=== PATIENT | male | born 1950 | race Caucasian/White ===

== ENCOUNTER 2016-07-08 10:44 | Outpatient (CLI) | payer MEDICARE, BC ==
[~2016-07-08] VITALS: Ht 172.7 cm; Wt 113.6 kg
--- NOTE | ~2016-07-08 | HEMODYNAMI ---
PATIENT:CHAD DU MEDICAL RECORD: [id number] : 46 LOCATION:[facility] D.[id number] ADMISSION DATE: 07/08/16 Generatedon:07/08/201615:29 Patient name: CHAD DU Patient #: [id number] SSN: DO B: 1950 Date of study: 07/08/2016 Page: Of Hemodynamic Procedure Report Patient Data Patient Demographics Procedure consent was obtained First Name: CHAD Gender: Male Last Name: FLORIAN : 1950 [facility] Initial: SELENA Age: 66 year(s) Patient #: [id number] Race: Additional ID: [id number] Contact details Address: [address] [place] [address] State: [place] City: [place] Zip code: [address] Past Medical History Allergies Allergen Reaction Date Comments Reported Other allergy 07/08/2016 N Admission Admission Data Admission Date: 07/08/2016 Admission Time: 10:44 Admit Source: Other Insurance Payor: Private Room #: D.2121 health insurance, Medicare Height (in.): 68 BSA: 2.25 (m2) Height (cm.): 172.72 BMI: 38.09 (kg/m2) Weight (lbs.): 250.51 Weight (kg.): 113.63 Lab Results Lab Result Date: 07/08/2016 Lab Result Time: 10:50 Biochemistry Name Units Result Min Max BUN mg/dl 13 --(--*-)-- 7 18 Creatinine mg/dl 1 --(--*-)-- 0.6 1.3 CBC Name Units Result Min Max Hematocrit % 42.5 --(*---)-- 42 54 Hemoglobin g/dl 14 --(*---)-- 13.5 17.5 Procedure Procedure Types Cath Procedure Diagnostic Procedure LHC LH w/Coronaries PCI Procedure Coronary Stent Initial PTCA Initial Procedure Description Procedure Date Procedure Date: 07/08/2016 Procedure Start Time: 13:21 Procedure End Time: 14:25 Procedure Staff Name Function Kenisha Rangel RT Monitor Husam Randee RT Scrub Irma Tejeda RN Nurse Kane Ricks MD Performing Physician Berhane Coyle RT Monitor Licha Gan RT Monitor Procedure Data Cath Procedure Fluoroscopy Diagnostic fluoroscopy Total fluoroscopy Time: time: 35.2 min 35.2 min Diagnostic fluoroscopy Total fluoroscopy dose: dose: 7033 mGy 7033 mGy Contrast Material Contrast Material Type Amount (ml) Isovue 370 418 Entry Location Entry Primary Successful Side Size Upsize Upsize Entry Closure Hernandez ccessful Closure Location (Fr) 1 (Fr) 2 (Fr) Remarks Device Remarks Radial Right 6 Fr Mechanical artery Short Compression Femoral Right 6 Fr Exoseal artery Short Femoral Right 6 Fr Exoseal artery Short Estimated blood loss: 5 ml Diagnostic catheters Device Type Used For End Catheter Placement Terumo 5Fr David 110cm Procedure catheter Cordis Infinity 5Fr JL Left Coronary 4.0 catheter Angiography Procedure Complications No complications Procedure Medications Medication Administration Route Dosage Oxygen NC 2 l/min Lidocaine 2% added to field 20 Heparin Flush Bag added to field 2 bags (1000units/500ml NS) 0.9% NaCl I.V. 100 ml/hr Versed I.V. 2 mg Fentanyl I.V. 100 mcg Radial Cocktail I.A. 1 syringe (Verapomil 2mg/Nitro 400mcg/Heparin 1500units) Versed I.V. 1 mg Fentanyl I.V. 50 mcg Versed I.V. 1 mg Fentanyl I.V. 50 mcg Versed I.V. 1 mg Fentanyl I.V. 50 mcg Heparin Bolus I.V. 4000 units Integrilin (Bolus I.V. 10.2 ml 2mg/ml) Versed I.V. 1 mg Fentanyl I.V. 50 mcg Heparin Bolus I.V. 3000 units Plavix P.O. 600 mg Zofran I.V. 4 mg Atropine 1 mg Heparin Bolus I.V. 2000 units Fentanyl I.V. 50 mcg Fentanyl I.V. 50 mcg Amiodarone Loading I.V. drip 150 mg Dose (150mg/100ml D5W) Hemodynamics Rest BSA: 2.25 (m2) HGB: 14 (g/dl) O2 Consumption: Estimated: 247.7 (ml/min) O2 Consu mption indexed: Estimated:110.09 (ml/min/m) Heart Rate: 54 (bpm) Pressure Samples Time Site Value (mmHg) Purpose Heart Use Rate(bpm) 13:27 LV 136/-5,16 Snapshot 85 13:28 LV 112/10,11 Pullback 90 13:28 AO 118/74(93) Pullback 90 Gradients Valve Time Site 1 Site 2 Mean SEP/DFP Peak To Heart Use (mmHg) (sec/min) Peak Rate (mmHg) (bpm) Aortic 13:28 LV AO 0 90 112/10,11 118/74(93) Calculations Valve P-P Mean Valve Index Valve Source Name Gradient Area Flow (cm2) Aortic 0 0 Snapshots Pre Cath Intra NCS Post Cath Vital Signs Time Heart Resp SPO2 etCO2 [id number] NIBP (mmHg) Rhythm Pain Status Sed ation Rate (ipm) (%) (mmHg) (mmHg) Level (bpm) 13:02:59 57 21 99 0 0 135/76(110) NSR 0 (11) , No 10( A) pain 13:07:09 56 17 100 0 0 133/71(104) NSR 0 (11) , No 10( A) pain 13:11:25 63 16 98 0 0 125/75(107) NSR 0 (11) , No 10( A) pain 13:15:35 64 18 99 0 0 127/83(98) NSR 0 (11) , No 10( A) pain 13:19:45 64 19 97 0 0 136/85(120) NSR 0 (11) , No 10( A) pain 13:23:57 73 16 97 0 0 113/88(108) NSR 0 (11) , No 9(A ) pain 13:28:05 86 13 96 0 0 128/75(93) NSR 0 (11) , No 9(A ) pain 13:32:19 87 18 98 0 0 125/76(91) NSR 0 (11) , No 9(A ) pain 13:36:28 81 16 98 0 0 126/77(100) NSR 0 (11) , No 9(A ) pain 13:40:36 83 15 98 0 0 122/81(105) NSR 0 (11) , No 9(A ) pain 13:44:48 77 16 98 0 0 135/76(100) NSR 0 (11) , No 9(A ) pain 13:49:04 81 16 98 0 0 120/78(99) NSR 0 (11) , No 9(A ) pain 13:53:12 78 17 99 0 0 120/85(99) NSR 0 (11) , No 9(A ) pain 13:57:18 79 17 100 0 0 128/85(103) NSR 0 (11) , No 9(A ) pain 14:01:30 77 17 100 0 0 130/81(97) NSR 0 (11) , No 9(A ) pain 14:05:44 73 16 100 0 0 127/78(105) NSR 0 (11) , No 9(A ) pain 14:09:58 69 16 100 0 0 122/75(98) NSR 0 (11) , No 9(A ) pain 14:14:12 71 17 99 0 0 125/70(101) NSR 0 (11) , No 9(A ) pain 14:18:21 69 17 99 0 0 117/75(97) NSR 0 (11) , No 10( A) pain 14:22:29 69 15 99 0 0 104/76(87) NSR 10 (11) , 10( A) Unimaginable unspeakable 14:36:27 112 12 100 0 0 108/74(91) NSR 10 (11) , 10( A) Unimaginable unspeakable 14:40:29 107 20 100 0 0 120/88(106) NSR 10 (11) , 10( A) Unimaginable unspeakable 14:44:32 104 17 100 0 0 119/95(102) NSR 8 (11) , 10( A) Utterly horrible 14:48:38 109 16 95 0 0 121/90(100) NSR 8 (11) , 10( A) Utterly horrible 14:52:44 116 20 95 0 0 127/93(108) NSR 8 (11) , 10( A) Utterly horrible 14:56:50 108 16 96 0 0 124/89(100) NSR 3 (11) , 10( A) Tolerable 15:00:58 92 16 97 0 0 139/85(117) NSR 3 (11) , 10( A) Tolerable 15:04:53 98 17 96 0 0 118/92(109) NSR 3 (11) , 10( A) Tolerable 15:08:57 89 17 95 0 0 131/90(107) NSR 3 (11) , 10( A) Tolerable Medications Time Medication Route Dose Verified Delivered Reason Note s Effectiveness by by 13:01:35 Oxygen NC 2 l/min Kane Buffie used for [facility] Tejeda RN procedure 13:01:53 Lidocaine 2% added 20ml Kane Kane for local to vial [facility] anesthetic field MD OVIEDO 13:02:04 Heparin Flush added 2 bags Kane Middleton used for Bag to [facility] procedure (1000units/500ml field MD OVIEDO NS) 13:02:15 0.9% NaCl I.V. 100 Kane Buffie Per physician ml/hr [facility] Tejeda RN, MD 13:18:11 Versed I.V. 2 mg Kane Buffie for sedation [facility] Tejeda RN, MD 13:18:21 Fentanyl I.V. 100 mcg Kane Seamusie for sedation [facility] Tejeda RN, MD 13:24:52 Radial Cocktail I.A. 1 Kane Kane for (Verapomil syringe [facility] vasodilation 2mg/Nitro MD OVIEDO 400mcg/Hepari 13:24:57 Versed I.V. 1 mg Kane Buffie for sedation [facility] Tejeda RN, MD 13:25:01 Fentanyl I.V. 50 mcg Kane Buffie for sedation [facility] Tejeda RN, MD 13:31:12 Versed I.V. 1 mg Kane Buffie for sedation [facility] Tejeda RN, MD 13:31:16 Fentanyl I.V. 50 mcg Kane Buffie for sedation [facility] Tejeda RN, MD 13:35:52 Versed I.V. 1 mg Kane Buffie for sedation [facility] Tejeda RN, MD 13:35:55 Fentanyl I.V. 50 mcg Kane Buffie for sedation [facility] Tejeda RN, MD 13:38:35 Heparin Bolus I.V. 4000 Kane Buffie for VERI FIED units [facility] John Tejeda RN anticoagulation WITH DR MD PETERSEN 13:44:07 Integrilin I.V. 10.2 ml Kane Wayie for (Bolus 2mg/ml) [facility] Tejeda RN antiplatelet MD therapy 14:00:53 Versed I.V. 1 mg Kane Buffie for sedation [facility] Tejeda RN, MD 14:00:57 Fentanyl I.V. 50 mcg Kane Buffie for sedation [facility] Tejeda RN, MD 14:03:04 Heparin Bolus I.V. 3,000 Kane Buffie for VERI FIED units [facility] John Tejeda RN anticoagulation WITH DR MD PETERSEN 14:27:47 Plavix P.O. 600 mg Kane Buffie for [facility] Tejeda RN antiplatelet MD therapy 14:29:20 Zofran I.V. [address] John Tejeda RN, MD 14:32:48 Atropine 1 mg Kane Bufflaura Westbrook RN, MD 14:41:13 Heparin Bolus I.V. 2,000 Kane Buffie for VERI FIED units [facility] John Tejeda RN anticoagulation WITH DR MD PETERSEN 14:43:09 Fentanyl I.V. 50 mcg Kane Buffie for sedation [facility] Tejeda RN, MD 14:46:46 Fentanyl I.V. 50 mcg Kane Buffie for sedation [facility] Tejeda RN, MD 14:52:22 Amiodarone I.V. 150 mg Kane Solis Per physician Loading Dose drip [facility] Tejeda RN (150mg/100ml D5W) Procedure Log Time Note 12:32:26 Husam Jeff RT(R) sent for patient. Start room use. 12:32:27 Time tracking: Regular hours 12:32:32 Plan of Care:Hemodynamics will remain stable., Cardiac rhythm will remain stable., Comfort level will be maintained., Respiratory function will remain adequate., Patient/ family verbilizes understanding of procedure., Procedure tolerated without complication., Recovers from procedure without complications.. 12:40:50 Lab Result : Hemoglobin 14 g/dl 12:40:50 Lab Result : Hematocrit 42.5 % 12:40:50 Lab Result : BUN 13 mg/dl 12:40:50 Lab Result : Creatinine 1 mg/dl 12:40:55 Diagnostic Cath Status : Elective 12:41:04 Patient Weight : 250.51 lbs 12:41:18 Patient Height : 68 inches 12:41:27 Insurance Payor : Private health insurance, Medicare 12:41:31 Admit Source: Other 12:43:03 Patient allergic to Other allergyPCN 12:43:26 ACC Patient presents with Stable Angina CCS Anginal Class 2--Slight limitation of ordinary activity. 12:43:41 H&P Date Dictated: 07/03/2016 Within 30 days and on chart., H&P Addendum completed by physician on day of procedure. (MUST COMPLETE FOR ALL OUTPATIENTS). 12:54:46 Patient received from Outpatients to CCL 2 Alert and oriented. Tansferred to table in Supine position. 12:54:48 Correct patient and procedure confirmed by team. 12:54:48 Warm blankets applied, and kyle hugger turned on for patient comfort. 12:54:50 Signed procedure consent form obtained from patient. 12:54:51 ECG and BP/O2 sat monitors applied to patient. 12:54:53 Pre-procedure instructions explained to patient. 12:54:54 Pre-op teaching completed and patient verbalized understanding. 12:54:56 Family in waiting room. 12:54:58 Patient NPO since Midnight. 13:01:35 Oxygen 2 l/min NC was given by Irma Tejeda RN; used for procedure; 13:01:53 Vital chart was started 13:01:53 Lidocaine 2% 20ml vial added to field was given by Kane Ricks MD; for local anesthetic; 13:01:57 Rhythm: sinus bradycardia 13:02:04 Heparin Flush Bag (1000units/500ml NS) 2 bags added to field was given by Kane Ricks MD; used for procedure; 13:02:07 Full Disclosure recording started 13:02:13 Is the patient allergic to Iodine/contrast media? No. 13:02:15 0.9% NaCl 100 ml/hr I.V. was given by Irma Tejeda RN; Per physician; 13:03:08 Is patient on blood thinner?No 13:03:11 ACC The patient was administered the following blood thiners within the last 24 hours: ACCAspirin 13:03:18 Patient diabetic? No. 13:03:26 ACCPatient has been prescribed/administered the following anti-anginal medication within the last 2 weeks: Long-Acting Nitrates 13:03:33 Previous problem with sedation/anesthesia? No ? 13:05:24 Snore? Yes 13:05:26 Sleep apnea? Yes 13:05:27 Deviated septum? No 13:05:39 Opens mouth fully? Yes 13:05:40 Sticks out tongue? Yes 13:05:42 Airway obstruction? No ? 13:05:44 Dentures? No ? 13:05:47 Pre procedure: right dorsailis pedis pulse 2+ Normal; easily identifiable; not easily obliterated 13:05:49 Modified Brad's test Ulnar < 7 seconds 13:05:51 Patient pain scale 0/10 ?. 13:05:56 IV patent on arrival in left forearm with 0.9% NaCl at [facility]. 13:05:59 Lab results completed and on chart. 13:06:02 Right groin area was prepped with chlora-prep and draped in sterile fashion 13:06:03 Sharps counted by scrub and verified by R.N. 13:06:03 Alarms reviewed by R. N. 13:06:11 Use device set Radial Dx 13:06:12 Acist Syringe opened to sterile field. 13:06:13 Terumo 6Fr Slender Glidesheath opened to sterile field. 13:06:13 Bag Decanter opened to sterile field. 13:06:13 Cardinal Cath Pack opened to sterile field. 13:06:14 Acist Hand Control opened to sterile field. 13:06:14 St Johnnie 260cm J .035 wire opened to sterile field. 13:06:15 Acist Manifold opened to sterile field. 13:06:16 Tegaderm 4 x 4 opened to sterile field. 13:06:55 Baseline sample Acquired. 13:09:21 Physician paged 13:09:24 Zero performed for pressure channel P1 13:09:28 Zero performed for pressure channel P1 13:09:32 Zero performed for pressure channel P1 13:17:28 Final Timeout: patient, procedure, and site verified with staff and physician. All members of the team are in agreement. 13:17:31 Right groin site verified by team. 13:17:36 Physical assessment completed. ASA score P 2 - A patient with mild systemic disease as per Kane Ricks MD. 13:17:44 Sedation plan: IV Moderate Sedation Versed, Fentanyl 13:18:11 Versed 2 mg I.V. was given by Irma Tejeda RN; for sedation; 13:18:21 Fentanyl 100 mcg I.V. was given by Irma Tejeda RN; for sedation; 13:20:46 Procedure started. 13:21:20 Local anesthetic to right femoral artery with Lidocaine 2% by Kane Ricks MD.INITIAL ACCESS ONLY 13:23:51 A 6 Fr Short sheath was inserted into the Right Radial artery 13:24:52 Radial Cocktail (Verapomil 2mg/Nitro 400mcg/Heparin 1500units) 1 syringe I.A. was given by Kane Ricks MD; for vasodilation; 13:24:57 Versed 1 mg I.V. was given by Irma Tejeda RN; for sedation; 13:25:01 Fentanyl 50 mcg I.V. was given by Irma Tejeda RN; for sedation; 13:25:07 Kenisha Claire RT(R) was relieved by Berhane Coyle RT(R) as monitoring person 13:25:11 A Hemp 4 [place] 5Fr David 110cm catheter was advanced over the wire and used for Procedure. 13:27:28 LV gram done using BUI 13:27:29 LV hemodynamics recorded. 13:27:31 Injector settings: Ml/sec: 5, Volume: 15, 13:28:01 EF : 55 % 13:28:51 RCA angiography performed. 13:29:40 LCA angiography performed. 13:31:12 Versed 1 mg I.V. was given by Irma Tejeda RN; for sedation; 13:31:16 Fentanyl 50 mcg I.V. was given by Irma Tejeda RN; for sedation; 13:34:35 Catheter removed. 13:34:37 Proceeding to intervention. 13:35:17 [employer] BasixCompak Inflation Kit opened to sterile field. 13:35:17 Cordis 6FR XBLAD 4.0 guide catheter opened to sterile field. 13:35:26 Saldana [place] 300cm 0.014 guide wire opened to sterile field. 13:35:52 Versed 1 mg I.V. was given by Irma Tejeda RN; for sedation; 13:35:55 Fentanyl 50 mcg I.V. was given by Irma Tejeda RN; for sedation; 13:37:53 6 Fr xblad 4 guide catheter was inserted over the wire 13:38:26 Guide Catheter removed. unable to cannulate vessel. 13:38:35 Heparin Bolus 4000 units I.V. was given by Irma Tejeda RN; for anticoagulation; VERIFIED WITH DR PETERSEN 13:38:45 unable to get back up support. Moving to femoral approach. 13:39:07 Local anesthetic to right femoral artery with Lidocaine 2% by Kane Ricks MD.ADDITIONAL ACCESS 13:39:17 A 6 Fr Short sheath was inserted into the Right Femoral artery 13:42:11 Medtronic Launcher 6Fr JL 4.0 SH guide catheter opened to sterile field. 13:42:18 6 Fr JL 4 SH guide catheter was inserted over the wire 13:44:07 Integrilin (Bolus 2mg/ml) 10.2 ml I.V. was given by Irma Tejeda RN; for antiplatelet therapy; 13:45:29 cougar wire advanced. 13:46:32 Wire advanced across lesion. 13:46:33 The [place] Sci Lincoln 3.0 X 15 balloon was advanced and then removed because of failure to cross lesion 13:51:34 Wire removed. 13:51:38 Guide Catheter removed. unable to cannulate vessel. 13:52:18 Medtronic Launcher 6Fr EBU 3.75 SH guide catheter opened to sterile field. 13:52:34 6 Fr ebu 3.75sh guide catheter was inserted over the wire 13:57:30 Saldana Whisper J 300cm 0.014 guide wire opened to sterile field. 13:57:37 whisper wire advanced. 13:58:17 Wire advanced across lesion. 14:00:43 Inflation number: 1 A Euphora 1.5 x 10 Balloon was prepped and advanced across the Ramus, then inflated to 12 JOHN for 0:30 (min:sec). 14:00:53 Versed 1 mg I.V. was given by Irma Tejeda RN; for sedation; 14:00:57 Fentanyl 50 mcg I.V. was given by Irma Tejeda RN; for sedation; 14:01:06 Balloon removed over the wire. 14:03:04 Heparin Bolus 3,000 units I.V. was given by Irma Tejeda RN; for anticoagulation; VERIFIED WITH DR PETERSEN 14:04:29 Inflation number: 2 A [place] Sci Lincoln 3.0 X 15 balloon was prepped and advanced across the Ramus, then inflated to 10 JOHN for 0:30 (min:sec). 14:05:34 Balloon removed over the wire. 14:08:56 The Medtronic Integrity 3.0 X 18 stent was advanced then removed because of failure to cross lesion 14:11:00 Wire removed. 14:11:09 [place] Sci Choice PT Extra Support J 300cm .014 gu opened to sterile field. 14:11:16 choice pt wire advanced. 14:12:46 Inflation number: 3 A [place] [employer] [place] 3.0 X 15 balloon was prepped and advanced across the Ramus, then inflated to 10 JOHN for 0:30 (min:sec). 14:13:17 Balloon removed over the wire. 14:16:24 The Medtronic Integrity 3.0 X 18 stent was advanced then removed because of failure to cross lesion 14:20:44 The Medtronic Integrity 3.0 X 12 stent was advanced then removed because of failure to cross lesion 14:20:51 Wire removed. 14:20:52 Guide catheter removed. 14:21:06 Cordis 6Fr Exoseal opened to sterile field. 14:21:48 Sheath removed intact; hemostasis achieved with Exoseal to the Right Femoral artery. 14:22:17 Terumo TR Band Large opened to sterile field. 14:22:30 Sheath removed intact; hemostasis achieved with Mechanical Compression to the Right Radial artery. 14:23:10 Sharps counted by scrub and verified by R.N. 14:23:14 TR band inflated with 10cc of air. 14:23:20 Post-op/insertion site Right Femoral artery dressed using a 4 x 4 and Tegaderm. 14:23:24 Post right femoral artery:stable 14:23:35 Patient needs reinforcement of post procedure teaching. 14:24:05 Procedure type changed to Cath procedure, Diagnostic procedure, LHC, LHC w/Coronaries, PCI procedure, Coronary Stent Initial, PTCA Initial 14:27:47 Plavix 600 mg P.O. was given by Irma Tejeda RN; for antiplatelet therapy; 14:28:27 Before removing patient from table, ST changes and chest pain were noted; Patient redraped for continuation of procedure 14:29:20 Zofran 4 mg I.V. was given by Irma Tejeda RN; ; 14:32:27 Right groin site verified by team. 14:32:48 Atropine 1 mg was given by Irma Tejead RN; ; 14:34:11 local anesthetic to left femoral artery with 2% lidocaine by Dr. Singh 14:34:46 Vital chart was started 14:35:20 A 6 Fr Short sheath was inserted into the Right Femoral artery 14:36:28 Zero performed for pressure channel P1 14:37:49 St Johnnie 260cm J .035 wire opened to sterile field. 14:38:00 A Cordis Infinity 5Fr JL 4.0 catheter was advanced over the wire and used for Left Coronary Angiography. 14:40:55 Saldana Whisper J 300cm 0.014 guide wire opened to sterile field. 14:41:13 Heparin Bolus 2,000 units I.V. was given by Irma Tejeda RN; for anticoagulation; VERIFIED WITH DR PETERSEN 14:41:30 Medtronic Launcher 6Fr JL 4.0 guide catheter opened to sterile field. 14:41:54 6 Fr jl 4 guide catheter was inserted over the wire 14:42:00 whisper wire advanced. 14:43:06 whisper wire removed 14:43:09 Fentanyl 50 mcg I.V. was given by Irma Tejeda RN; for sedation; 14:46:21 Saldana [place] 300cm 0.014 guide wire opened to sterile field. 14:46:31 cougar wire advanced. 14:46:46 Fentanyl 50 mcg I.V. was given by Irma Tejeda RN; for sedation; 14:52:22 Amiodarone Loading Dose (150mg/100ml D5W) 150 mg I.V. drip was given by Irma Tejeda RN; Per physician; 14:53:18 Inflation number: 1 A [place] Sci [place] 2.5 X 15 balloon was prepped and advanced across the Prox LAD, then inflated to 10 JOHN for 0:30 (min:sec). 14:53:52 Inflation number: 2 The [place] Sci [place] 2.5 X 15 balloon was reinflated across the Prox LAD, to 12 JOHN for 0:30 (min:sec). 14:54:34 Quick Combo opened to sterile field. 14:54:46 Quick combo pads placed on patients chest and back. 14:54:49 Defibrillator synced and charged to 360 Joules. 14:54:50 Shock delivered. 14:54:59 Patient cardioverted to sinus rhythm . 14:55:39 Balloon removed over the wire. 14:58:45 Inflation Number: 3 A Medtronic Integrity 3.5 X 15 stent was prepped and advanced across the Prox LAD. The stent was deployed at 12 JOHN for 0:30 (min:sec). 15:02:35 Inflation Number: 4 A Medtronic Integrity 3.5 X 9 stent was prepped and advanced across the Prox LAD. The stent was deployed at 11 JOHN for 0:30 (min:sec). 15:03:42 Inflation number: 5 The stent balloon was then re-inflated across the Prox LAD to 10 JOHN for 0:30 (min:sec). 15:04:57 Wire removed. 15:04:57 Stent catheter was removed intact over wire. 15:04:58 Guide catheter removed. 15:05:49 Cordis 6Fr Exoseal opened to sterile field. 15:06:14 Sheath removed intact; hemostasis achieved with Exoseal to the Right Femoral artery. 15:06:17 Procedure ended.(Physican Out) 15:10:02 Fluoroscopy time 35.20 minutes. 15:10:16 Fluoroscopy dose: 7033 mGy 15:10:16 Flurop Dose total: 7033 15:10:59 Contrast amount:Isovue 370 418ml. 15:11:03 Sharps counted by scrub and verified by R.N. 15:11:06 Insertion/operative site no bleeding no hematoma. 15:11:11 Post-op/insertion site Right Femoral artery dressed using a 4 x 4 and Tegaderm. 15:11:13 Post Procedure Pulses reassessed and unchanged 15:11:17 Post procedure rhythm: sinus rhythm 15:11:20 Estimated blood loss: 5 ml 15:11:22 Post procedure instruction explained to patient.Patient verbalizes understanding. 15:12:04 Procedure and supply charges have been captured, reviewed, submitted and are correct. 15:12:06 Procedure Complication : No complications 15:12:10 See physician's report for complete and final results. 15:12:10 Vital chart was stopped 15:12:25 Report given to [facility]. 15:12:27 Patient transfered to [facility] with Stretcher. 15:12:38 ACC-PCI Only Patient was given prescriptions, or instructed by Kane Ricks MD to start/continue the following medications upon discharge: Aspirin 15:12:39 End room use (Document Last) Intervention Summary Intervention Notes Time ActionType Lesion and Equipment Action# Pressure Duration Attributes Used 13:46:33 Discard [place] Balloon Sci [place] 3.0 X 15 balloon 14:00:43 Inflate Ramus Euphora 1 12 00:30 balloon 1.5 x 10 Balloon 14:04:29 Inflate Ramus [place] 2 10 00:30 balloon Sci [place] 3.0 X 15 balloon 14:08:56 Discard Medtronic Stent Integrity 3.0 X 18 stent 14:12:46 Inflate Ramus [place] 3 10 00:30 balloon Sci [place] 3.0 X 15 balloon 14:16:24 Discard Medtronic Stent Integrity 3.0 X 18 stent 14:20:44 Discard Medtronic Stent Integrity 3.0 X 12 stent 14:53:18 Inflate Prox LAD [place] 1 10 00:30 balloon Sci [place] 2.5 X 15 balloon 14:53:52 Reinflate Prox LAD [place] 2 12 00:30 balloon Sci [place] 2.5 X 15 balloon 14:58:45 Place stent Prox LAD Medtronic 3 12 00:30 Integrity 3.5 X 15 stent 15:02:35 Place stent Prox LAD Medtronic 4 11 00:30 Integrity 3.5 X 9 stent 15:03:42 Reinflate Prox LAD Medtronic 5 10 00:30 stent Integrity balloon 3.5 X 9 stent Device Usage Item Name Manufacture Quantity Catalog Number Hospital Part Current Mini mal Lot# / Charge Number Stock Stock Serial# Code Acist Acist 1 [id number] 199209 214023 [id number] 20 Syringe [employer] Cardinal Cardinal 1 [id number] 592304 16591 519007 5 Cath Pack Health Bag Microtek 1 [id number] [id number] 40272 183119 5 Mobule [employer]. Terumo 6Fr Terumo 1 [id number] 007330 400478 820868 [address] [facility] Johnnie 2 419041 743101 009572 927996 30 260cm J .035 wire Acist Hand Acist 1 08093 611556 030147 149421 5 Control [employer] Inc Acist Acist 1 52205 427128 386510 458703 5 Manifold [employer] Inc Tegaderm 4 3M 1 [id number] 716303 128401 967768 5 x 4 Terumo 5Fr Terumo 1 40-8860 417457 742154 096911 5 David 110cm catheter Cordis 6FR Cardinal 1 [id number] 449266 046653 010859 3 XBLAD 4.0 Health guide catheter Merit Merit 1 [id number] 019768 501265 208674 15 [employer] Inflation Kit Saldana Saldana 2 [id number] 292267 356064 685432 1 [place] [employer] 300cm 0.014 guide wire Medtronic Medtronic 1 [id number] 424949 09710 0708439 1 Launcher 6Fr JL 4.0 SH guide catheter [place] Sci [place] 2 [id number] 193418 137318 442165 1 [id number] [place] [employer] [id number] 3.0 X 15 balloon Medtronic Medtronic 1 [id number] 531577 70644 2751450 1 Launcher 6Fr EBU 3.75 SH guide catheter Lever 2 [id number] 698277 235543 225089 5 Whisper J Vascular 300cm 0.014 guide wire Euphora 1.5 Medtronic 1 [id number] 878421 889104 269829 5 [id number] x 10 Balloon Medtronic Medtronic 1 [id number] 504982 745840 166081 5 [id number] Integrity 3.0 X 18 stent [place] Sci [place] 1 [id number] 247817 [id number] 662943 5 Choice Scientific Extra Support J 300cm .014 gu Medtronic Medtronic 1 [id number] 078786 160394 685096 5 [id number] Integrity 3.0 X 12 stent Cordis 6Fr Cardinal 2 EX600 180676 067851 943143 10 Exoseal Health Terumo TR Terumo 1 [id number] 360639 316253 40 Band Large Cordis Cardinal 1 [id number] 660437 056988 018071 10 Sundia MediTechity Health 5Fr JL 4.0 catheter Medtronic Medtronic 1 [id number] 135307 23162 507413 1 Launcher 6Fr JL 4.0 guide catheter [place] Sci [place] 1 [id number] 316907 935955 787254 1 [id number] [place] [employer] 2.5 X 15 balloon Quick Combo Edge Systems 1 [id number] 433769 495771 055895 5 Medtronic Medtronic 1 [id number] 767731 794597 224268 5 [id number] Integrity 3.5 X 15 stent Medtronic Medtronic 1 [id number] 491012 783661 836400 8 [id number] Integrity 3.5 X 9 stent Signature Audit [place] Stage Time Signature Unsigned Intra-Procedure 07/08/2016 Licha Gan RT(R) 3:29:08 PM Signatures Monitor : Kenisha Claire RT Signature : Date : Time : Monitor : Berhane Coyle RT Signature : Date : Time : Monitor : Licha Gan RT Signature : Date : Time : [address] [place] [address]
[~2016-07-08 10:44] MED LIST: BAYER ASPIRIN325 MG PO; BENADRYL25 M1 PO; CYMBALTA20 MG PO; DICLOFENAC SODI50 MG PO; DILAUDID2 MG PO; FLAXSEED OIL1000 MG PO; HYDROCHLOROTHIA25 MG PO; LIVALO2 MG PO; PROVENTIL HFA6.7 GM INH; ROBAXIN-750750 MG PO; XANAX1 MG PO
[2016-07-08 11:18] LABS: BASOPHILS 0.4 % (0.0-2.0); EOSINOPHILS 4.2 % (0-7); HEMATOCRIT 42.5 % (42.0-54.0); IMMATURE GRANULOCYTES 0.1 % (0-5); LYMPHOCYTES 33.1 % (15-50); MCHC 32.9 g/dL (31.0-37.0); MEAN PLATELET VOLUME 10.3 fL (7.4-10.4); MONOCYTES 10.4 % (2-11); NEUTROPHILS 51.8 % (40-80); PLATELET COUNT 288 10x3/uL (130-400); RBC 4.38 10x6/uL (4.20-6.10); RDW 13.2 % (11.5-14.5); WBC 7.1 10x3/uL (4.8-10.8)
[2016-07-08 11:31] LABS: CALC OSMOLALITY 277 mosm/kg (275-300); CALCIUM 9.2 mg/dL (8.5-10.1); CHLORIDE - SERUM 103 mmol/L (98-107); GLUCOSE 88 mg/dL (74-106); POTASSIUM - SERUM 3.8 mmol/L (3.5-5.1); SODIUM 140 mmol/L (136-145); UREA NITROGEN 13 mg/dL (7-18); eGFR NON AFRICAN AMERICAN 79 mL/min (90-120)
[2016-07-08] MEDS ORDERED: PROVENTIL HFA6.7 GM INH (11:39)
[2016-07-08] MEDS ORDERED: ISOSORBIDE MONO30 M1 PO (11:41)
[2016-07-08 11:45] VITALS: BP 138/72; Ht 172.7 cm; Wt 113.6 kg
--- NOTE | 2016-07-08 15:50 | NUR ---
PT ARRIVED TO ROOM FROM [employer]. PT IS ALERT AND ORIENTED RESTING QUIETLY IN BED. RR NONLABORED WITH NC @2L IN PLACE. VSS. PT HAS TR BAND TO R.WRIST INFLATED AND NO S/S OF BLEEDING NOTED. R.GROIN HAS DRSG CDI NO S/S OF BLEEDING OR HEMATOMA NOTED. PERIPHERAL PULSES INTACT. PT AWARE TO LAY FLAT FOR 4 HOURS AND DENIES ANY FURTHER PAIN OR NEEDS. WILL CPOC.
[2016-07-08 16:00] VITALS: BP 118/74
--- NOTE | 2016-07-08 17:30 | NUR ---
REMOVED HALF AIR FROM TR BAND TO R.WRIST AND NOT BLEEDING WAS NOTED, REMOVED SECOND HALF 30 MINS LATER AND SITE STILL CDI NO S/S OF BLEEDING NOTED. DRSG TO R.GROIN DRSG CDI, NO S/S OF BLEEDING OR HEMATOMA NOTED. PERIPHERAL PULSE INTACT. VSS. WILL CTM.
--- NOTE | 2016-07-08 19:00 | NUR ---
RECEIVED REPORT AND ASSUMED PT CARE FROM DAY SHIFT NURSE @ THIS TIME.
[2016-07-08 20:00] VITALS: BP 132/70
[2016-07-09] VITALS: BP 131/73
--- NOTE | 2016-07-09 06:52 | NUR ---
AAO X4 RESP UNLABORED DENIES ANY NEEDS OR DISCOMFORT NAD NOTED
[2016-07-09 07:41] VITALS: BP 127/75
[2016-07-09] MEDS ORDERED: PLAVIX75 MG PO (08:56)
--- NOTE | 2016-07-09 11:15 | NUR ---
REVIEWED DISCHARGE INSTRUCTIONS PT STATES UNDERSTANDING COPY GIVEN SALINE LOCK DCD TO LFA WITH 22 GA IV CATH INTACT NO REDNESS OR EDEMA NOTED AT SITE PT DISCHARGED HOME LEFT UNIT VIA W/C IN STABLE CONDITION WITH ALL PERSONAL BELONGINGS
--- NOTE | 2016-07-10 13:36 | OP ---
PATIENT NAME: CHAD DU MEDICAL RECORD: [id number] :48 LOCATION:D.CAT ADMISSION DATE: SURGEON: JAMIE FELIX MD DATE OF OPERATION: 07/08/2016 PROCEDURES: Left heart catheterization, selective coronary angiography, right femoral artery approach. CATHETERS: A 5-[place] sheath, 5/4 left and right Nelly, no pigtail. The procedure was well tolerated. We proceeded immediately to PTCA stenting of the ramus. FINDINGS: Left ventriculography in 30-degree BUI view shows inferior basilar hypokinesis. Overall, LV function; however, preserved. CORONARY ANATOMY: Left main: Left main is free of disease. LAD: Has a hazy 50% stenosis in its proximal one third. There was high diagonal ____. Ramus intermedius branch is basically subtotal. RIGHT CORONARY ARTERY: Totally occluded and fills via left to right collaterals. IMPRESSION AND PLAN: Intervention of the ramus intermediate branch. DESCRIPTION OF THE PROCEDURE: After a 5-[place] Island[place] sheath was changed for a 6-[place] sheath. EBU 3.75 guiding catheter provided fairly good catheter support. We will pass a Whisper wire across the tightly occluded ramus down this portion of this vessel, followed by 15 x 3.0 Cocke balloon was inflated up to ____ atmospheres. We are unable to deploy a stent to the ramus intermediate branch, despite using a 15 and 12 mm. At this point, after successful PTCA of the ramus branch, the procedure was stopped and the patient was closed with ExoSeal device in stable condition. Will transfer now onto the bed. The patient was developing severe chest pain with bradyarrhythmias including junctional escape rhythm. The right groin reprepped in a rapid fashion. Commercial Litigation Attorney film showed a probable dissection at the origin of the LAD after the takeoff of the high diagonal ramus branch. This may have been traumatic from the stent itself. A 300 cm Horton XT wires was placed across this area rapidly, followed by a 3.0 x 15 Cocke balloon was inflated in the area to ensure adequate predeployment for stent placement. During this time, the patient was cardioverted due to rapid VT. This required one synchronized shock. Next, stent deployed in the following fashion, a 3.5 x 15 mm Integrity nondrug-eluting stent in the mid portion and a 3.5 x 8 mm Integrity nondrug-eluting stent in the proximal portion, both at 14 atmospheres for 45 seconds. Final injection shows excellent tacking. ____ secondary to stent trauma. Integrilin was rebolused. The patient was loaded with Plavix. Sheath was closed with a second ExoSeal device. TRANSINT:[id number] Voice Confirmation ID: [id number] DOCUMENT ID: [id number] OPERATIVE REPORT [id number] CHAD DU,JAMIE Strong MD at 1336 CC: [id number] DICTATION DATE: 07/08/16 1515 OB GYN PHYSICIAN ASSISTANT: 07/08/16 1904 DEP CLI 07/09/16 [facility] [address] [place] [address]
== END 2016-07-09 11:15 | disposition home or self-care (01) ==
LOC: D.CATH 10:44 → D.M2 15:28 → D.CATH 07-09 11:15
PROVIDERS: Internal Medicine Interventional Cardiology
DX: I25.10 Atherosclerotic heart disease of native coronary artery without angina pectoris (principal)

== ENCOUNTER 2016-09-26 22:56 | Inpatient (IN) | payer MEDICARE, BC ==
[~2016-09-26] VITALS: Ht 172.7 cm; Wt 116.7 kg
--- NOTE | ~2016-09-26 | HEMODYNAMI ---
PATIENT:CHAD DU MEDICAL RECORD: [id number] : 46 LOCATION:[address] ADMISSION DATE: 09/27/16 Generatedon:09/28/20169:05 Patient name: CHAD DU Patient #: [id number] SSN: DO B: 1950 Date of study: 09/28/2016 Page: Of Hemodynamic Procedure Report Patient Data Patient Demographics Procedure consent was obtained First Name: CHAD Gender: Male Last Name: FLORIAN : 1950 [facility] Initial: SELENA Age: 66 year(s) Patient #: [id number] Race: Additional ID: [id number] Contact details Address: [address] [place] [address] State: [place] City: [place] Zip code: [address] Past Medical History Allergies Allergen Reaction Date Comments Reported Other allergy 07/08/2016 PCN Admission Admission Data Admission Date: 09/27/2016 Admission Time: 1:18 Room #: 2110 Procedure Procedure Types Cath Procedure Diagnostic Procedure C [facility] w/Coronaries Miscellaneous Procedures Moderate Sedation up to 15 minutes Procedure Description Procedure Date Procedure Date: 09/28/2016 Procedure Start Time: 8:48 Procedure End Time: 9:04 Procedure Staff Name Function Yovany Graham MD Performing Physician Glenis Joshi RN Nurse Wan Chapa RT Scrub Brijesh Galvin RT Monitor Procedure Data Cath Procedure Fluoroscopy Diagnostic fluoroscopy Total fluoroscopy Time: 1 time: 1 min min Diagnostic fluoroscopy Total fluoroscopy dose: dose: 386.77 mGy 386.77 mGy Contrast Material Contrast Material Type Amount (ml) Isovue 300 70 Entry Location Entry Primary Successful Side Size Upsize Upsize Entry Closure Succes sful Closure Location (Fr) 1 (Fr) 2 (Fr) Remarks Device Remarks Femoral Right 7 Fr Exoseal artery Short Estimated blood loss: 10 ml Diagnostic catheters Device Type Used For End Catheter Placement Cordis 5Fr Pigtail Procedure Catheter (MP) Cordis 5Fr JL 4.0 Procedure Catheter (MP) Cordis 5Fr 3DRC Catheter Procedure (MP) Procedure Complications No complications Procedure Medications Medication Administration Route Dosage Oxygen NC 2 l/min Heparin Flush Bag added to field 2 bags (1000units/500ml NS) Lidocaine 2% added to field 20 Versed I.V. 1 mg Fentanyl I.V. 50 mcg Versed I.V. 1 mg Fentanyl I.V. 50 mcg Versed I.V. 1 mg Fentanyl I.V. 50 mcg Hemodynamics Rest Heart Rate: 72 (bpm) Pressure Samples Time Site Value (mmHg) Purpose Heart Use Rate(bpm) 8:51 AO 163/109(132) Snapshot 79 Snapshots Pre Cath Intra NCS Post Cath Vital Signs Time Heart Resp SPO2 NIBP (mmHg) Rhythm Pain Sedation Rate (ipm) (%) Status Level (bpm) 8:31:47 71 18 99 136/85(108) NSR 0 (11) 10(A) , No pain 8:36:08 72 16 100 128/80(104) NSR 0 (11) 10(A) , No pain 8:40:24 77 16 98 141/84(108) NSR 0 (11) 10(A) , No pain 8:44:44 77 15 98 120/85(112) NSR 0 (11) 10(A) , No pain 8:49:43 81 16 97 147/97(104) NSR 0 (11) 10(A) , No pain 8:54:42 90 16 95 Measuring NSR 0 (11) 9(A) , No pain 8:59:23 89 16 97 129/84(104) NSR 0 (11) 9(A) , No pain 9:03:36 87 13 96 144/94(110) NSR 0 (11) 9(A) , No pain Medications Time Medication Route Dose Verified Delivered Reason Notes Effect iveness by by 8:31:32 Oxygen NC 2 Yovany Glenis Per l/min Santos Joshi RN physician 8:31:44 Heparin Flush added 2 Yovany Xiongrey used for Bag to bags Santos Graham MD procedure (1000units/500ml field NS) 8:31:55 Lidocaine 2% added 20ml Yovanyarun Xiongrey used for to vial Santos Graham MD procedure field 8:45:32 Versed I.V. 1 mg Yovany Glenis for Santos Joshi RN sedation 8:45:49 Fentanyl I.V. 50 Yovany Torrezecca for mcg Santos Joshi RN sedation 8:47:29 Versed I.V. 1 mg Yovany Torrezecca for Santos Joshi RN sedation 8:47:49 Fentanyl I.V. 50 Yovany Glenis for mcg Santos Joshi RN sedation 8:50:04 Versed I.V. 1 mg Yovany Torrezecca for Santos Joshi RN sedation 8:50:09 Fentanyl I.V. 50 Yovany Glenis for bal Joshi RN sedation Procedure Log Time Note 7:58:28 Time tracking: Regular hours 7:58:32 Plan of Care:Hemodynamics will remain stable., Cardiac rhythm will remain stable., Comfort level will be maintained., Respiratory function will remain adequate., Patient/ family verbilizes understanding of procedure., Procedure tolerated without complication., Recovers from procedure without complications.. 8:00:51 Brijesh GOETZ(R) sent for patient. Start room use. 8:20:08 Patient received from PCU to [facility] 3 Alert and oriented. Tansferred to table in Supine position. 8:30:17 Correct patient and procedure confirmed by team. 8:30:17 Warm blankets applied, and kyle hugger turned on for patient comfort. 8:30:20 Signed procedure consent form obtained from patient. 8:30:22 ECG and BP/O2 sat monitors applied to patient. 8:30:22 Vital chart was started 8:31:32 Oxygen 2 l/min NC was administered by Glenis Joshi RN; Per physician; 8:31:44 Heparin Flush Bag (1000units/500ml NS) 2 bags added to field was administered by Yovany Graham MD; used for procedure; 8:31:55 Lidocaine 2% 20ml vial added to field was administered by Yovany Graham MD; used for procedure; 8:34:42 Baseline sample Acquired. 8:34:46 Rhythm: sinus rhythm 8:34:47 Full Disclosure recording started 8:34:54 H&P Date Dictated: 09/27/2016 Within 30 days and on chart.. 8:34:55 Pre-procedure instructions explained to patient. 8:34:55 Pre-op teaching completed and patient verbalized understanding. 8:34:56 Family in waiting room. 8:34:58 Patient NPO since Midnight. 8:35:06 Is the patient allergic to Iodine/contrast media? No. 8:35:09 Is patient on blood thinner?Yes 8:35:12 ACC The patient was administered the following blood thiners within the last 24 hours: ACCPlavix 8:35:14 Patient diabetic? No. 8:35:22 Previous problem with sedation/anesthesia? No ? 8:39:54 Snore? Yes 8:39:55 Sleep apnea? Yes 8:39:56 Deviated septum? No 8:39:57 Opens mouth fully? Yes 8:39:58 Sticks out tongue? Yes 8:40:00 Airway obstruction? No ? 8:40:04 Dentures? No ? 8:40:14 Pre procedure: right dorsailis pedis pulse 1+ Palpable, but thready & weak; easily obliterated 8:40:16 Patient pain scale 0/10 ?. 8:40:33 IV patent on arrival in left forearm with 0.9% NaCl at [facility]. 8:40:36 Lab results completed and on chart. 8:40:46 Right groin area was prepped with chlora-prep and draped in sterile fashion 8:40:48 Alarms reviewed by R. N. 8:40:48 Sharps counted by scrub and verified by R.N. 8:41:12 Use device set Femoral Dx 8:41:14 Tegaderm 4 x 4 opened to sterile field. 8:41:15 Acist Hand Control opened to sterile field. 8:41:15 Acist Manifold opened to sterile field. 8:41:17 Acist Syringe opened to sterile field. 8:41:17 Bag Decanter opened to sterile field. 8:41:18 Medline Cath Pack opened to sterile field. 8:41:19 [place] 260cm J .035 wire opened to sterile field. 8:41:20 Diagnostic Infinity 5Fr Multipack catheter opened to sterile field. 8:41:51 Terumo 7Fr [place] Sheath opened to sterile field. 8:44:33 Zero performed for pressure channel P1 8:45:24 --------ALL STOP TIME OUT------ 8:45:24 Final Timeout: patient, procedure, and site verified with staff and physician. All members of the team are in agreement. 8:45:26 Right groin site verified by team. 8:45:29 Physical assessment completed. ASA score P 2 - A patient with mild systemic disease as per Yovany Graham MD. 8:45:32 Versed 1 mg I.V. was administered by Glenis Joshi RN; for sedation; 8:45:32 Sedation plan: IV Moderate Sedation Versed, Fentanyl 8:45:49 Fentanyl 50 mcg I.V. was administered by Glenis Joshi RN; for sedation; 8:47:29 Versed 1 mg I.V. was administered by Glenis Joshi RN; for sedation; 8:47:49 Fentanyl 50 mcg I.V. was administered by Glenis Joshi RN; for sedation; 8:48:03 Procedure started. 8:48:08 Local anesthetic to right femoral artery with Lidocaine 2% by Yovany Graham MD.INITIAL ACCESS ONLY 8:49:10 A 7 Fr Short sheath was inserted into the Right Femoral artery 8:49:21 A Cordis 5Fr Pigtail Catheter (MP) was advanced over the wire and used for Procedure. 8:50:04 Versed 1 mg I.V. was administered by Glenis Joshi RN; for sedation; 8:50:09 Fentanyl 50 mcg I.V. was administered by Glenis Joshi RN; for sedation; 8:50:23 LV angiography performed. 8:50:24 LV gram done using BUI 8:50:30 EF : 50 % 8:51:18 Injector settings: Ml/sec: 10, Volume: 20, 8:51:20 Catheter removed. 8:51:24 A Cordis 5Fr JL 4.0 Catheter (MP) was advanced over the wire and used for Procedure. 8:52:49 LCA angiography performed. 8:52:50 Catheter removed. 8:52:55 A Cordis 5Fr 3DRC Catheter (MP) was advanced over the wire and used for Procedure. 8:53:47 RCA angiography performed. 8:54:20 Catheter removed. 8:54:30 Cordis 7Fr Exoseal opened to sterile field. 8:55:19 Sheath removed intact; hemostasis achieved with Exoseal to the Right Femoral artery. 8:55:21 Procedure ended.(Physican Out) 8:55:44 Fluoroscopy time 01.00 minutes. 8:55:50 Fluoroscopy dose: 386.77 mGy 8:55:50 Flurop Dose total: 386.77 8:55:53 Contrast amount:Isovue 300 70ml. 8:55:55 Sharps counted by scrub and verified by R.N. 8:56:30 Insertion/operative site no bleeding no hematoma. 8:56:46 Post-op/insertion site Right Femoral artery dressed using a 4 x 4 and Tegaderm. 8:56:48 Post Procedure Pulses reassessed and unchanged 8:56:50 Post-procedure physical assessment completed. ASA score P 2 - A patient with mild systemic disease as per Yovany Graham MD. 8:56:52 Post procedure rhythm: unchanged. 8:57:23 Estimated blood loss: 10 ml 8:59:34 Post procedure instruction explained to patient.Patient verbalizes understanding. 8:59:34 Patient needs reinforcement of post procedure teaching. 8:59:49 Procedure Complication : No complications 9:00:22 Procedure and supply charges have been captured, reviewed, submitted and are correct. 9:04:09 Vital chart was stopped 9:04:09 See physician's report for complete and final results. 9:04:13 Report given to PCU. 9:04:16 Patient transfered to PCU with Bed. 9:04:18 Procedure ended. 9:04:18 Full Disclosure recording stopped 9:04:31 End room use (Document Last) 9:04:47 Pt sent for CABG Consult. Device Usage Item Name Manufacture Quantity Catalog Hospital Part Current Minimal Lo t# / Number Charge Number Stock Stock Serial# Code Tegaderm 4 3M 1 [id number] 937617 944703 5 x 4 Acist Hand Acist 1 35769 585579 391591 788947 5 Control Medical Systems Inc Acist Acist 1 36542 837563 397994 752211 5 Manifold Medical Systems Inc Acist Acist 1 12009 960438 506597 701546 20 Syringe Medical Systems Inc Bag Microtek 1 2001S 347213 42981 708374 5 Decanter Medical Inc. Medline Cardinal 1 [id number] 730338 33913 460[address] [facility] 1 112660 180696 111109 787135 30 260cm J .035 wire Diagnostic Cardinal 1 [id number] 879156 10595 247122 30 Infinity Health 5Fr Multipack catheter Terumo 7Fr Terumo 1 [id number] 017159 839687 365918 5 [place] Sheath Cordis 5Fr Cardinal 1 787091 5 Pigtail Health Catheter (MP) Cordis 5Fr Cardinal 1 196313 5 JL 4.0 Health Catheter (MP) Cordis 5Fr Cardinal 1 895009 5 3DRC Health Catheter (MP) Cordis 7Fr Cardinal 1 EX700 349524 238630 361843 5 [facility] Health Signature Audit [place] Stage Time Signature Unsigned Intra-Procedure 09/28/2016 Brijesh Galvin 9:05:02 AM RT(R) Signatures Monitor : Brijesh Galvin RT Signature : Date : Time : [address] [place] [address]
[~2016-09-26 22:56] MED LIST changes: +ISOSORBIDE MONO30 M1 PO; +PLAVIX75 MG PO
[2016-09-26 23:44] LABS: BASOPHILS 0.3 % (0-2); EOSINOPHILS 5.5 % (0-7); HEMATOCRIT 41.6 % (42.0-54.0); HEMOGLOBIN 13.7 g/dL (13.5-17.5); LYMPHOCYTES 48.1 % (15-50); MCH 31.7 pg (26.0-34.0); MCHC 32.9 g/dL (31.0-37.0); MCV 96.3 fL (80.0-100.0); MEAN PLATELET VOLUME 10.8 fL (7.4-10.4); MONOCYTES 10.3 % (2-11); NEUTROPHILS 35.8 % (40-80); PLATELET COUNT 254 10x3/uL (130-400); RBC 4.32 10x6/uL (4.20-6.10); RDW 13.1 % (11.5-14.5); WBC 5.8 10x3/uL (4.8-10.8)
[2016-09-27 00:05] LABS: ALBUMIN 3.4 g/dL (3.4-5.0); ALKALINE PHOSPHATASE 66 U/L (46-116); ALT (SGPT) 44 U/L (10-68); BILIRUBIN - TOTAL 0.25 mg/dL (0.2-1.3); CALC OSMOLALITY 283 mosm/kg (275-300); CALCIUM 8.7 mg/dL (8.5-10.1); CARBON DIOXIDE 28.7 mmol/L (21.0-32.0); CHLORIDE - SERUM 104 mmol/L (98-107); CHOL - HDL RATIO 4.6 ratio (2.3-4.9); CHOLESTEROL, TOTAL 152 mg/dL (0-200); CKMB 1.1 U/L (0.0-3.6); CREATINE KINASE 91 UL (21-232); CREATININE - SERUM 1.4 mg/dL (0.6-1.3); GLUCOSE 100 mg/dL (74-106); HDL CHOLESTEROL 33 mg/dL (32-96); LDL CHOLESTEROL 72 mg/dL (0-100); LDL-HDL RATIO 2.2 ratio (1.5-3.5); POTASSIUM - SERUM 3.9 mmol/L (3.5-5.1); PROTEIN - SERUM 6.8 g/dL (6.4-8.2); SODIUM 141 mmol/L (136-145); TRIGLYCERIDE 237 mg/dL (30-200); UREA NITROGEN 22 mg/dL (7-18); eGFR NON AFRICAN AMERICAN 53 mL/min (90-120)
[2016-09-27 00:06] LABS: TROPONIN-I < 0.017 ng/mL (0.000-0.060)
[2016-09-27] MEDS ORDERED: BAYER CHEWABLE81 MG PO (02:01)
[2016-09-27] MEDS ORDERED: FISH OIL 1,0001 CA1 PO (02:04)
[2016-09-27] MEDS ORDERED: GLUCOSAMINE & C1 CAP PO (02:05)
[2016-09-27] MEDS ORDERED: CO Q-10200 MG PO (02:05)
[2016-09-27] MEDS ORDERED: B-12 DOTS500 MCG PO (02:06)
[2016-09-27] MEDS ORDERED: NITROSTAT0.4 MG SL (02:07)
--- NOTE | 2016-09-27 02:10 | NUR ---
REC FROM ER VIA WC. AMBULATED WITH STEADY GAIT TO THE BED. DENIES CHEST PAIN AT THIS TIME. IV IN L FA SL. NPO PER ORDER. ORIENTED TO ROOM AND CALL LIGHT FOR ANY NEEDS OR DISCOMFORTS. HIS IS STAYING WITH HIM.
[2016-09-27 02:53] VITALS: BP 115/57
[2016-09-27 04:00] VITALS: BP 115/57
[2016-09-27 05:44] LABS: TROPONIN-I 0.139 ng/mL (0.000-0.060)
--- NOTE | 2016-09-27 06:15 | NUR ---
DID EKG. DENIES CP OR ANY OTHER DISCOMFORTS.
--- NOTE | 2016-09-27 07:00 | NUR ---
RECEIVED REPORT. ASSUMED CARE OF PATIENT. CALL LIGHT WITHIN REACH. PATIENTS AT BEDSIDE. ALERT/ORIENTED. RESP EVEN AND UNLABORED. PATIENT DENIES ANY CHEST PAIN OR DISCOMFORT SINCE TAKING HIS [address]ND N[address] WAY TO THE HOSPITAL YESTERDAY. PATIENT STATES HE WAS WALKING BACK UP HIS DRIVEWAY. PATIENT HAS HAD NO EXERTIONAL OR STRENUOUS ACTIVITY SINCE COMING TO HOSPITAL. PATIENT INFORMED HE IS NPO UNITL VISITS WITH HIM THIS MORNING. DENIES ANY PAIN OR DISCOMFORT AT THIS TIME.
[2016-09-27 08:10] VITALS: BP 123/66
[2016-09-27 11:49] VITALS: BP 122/70
[2016-09-27 12:05] LABS: TROPONIN-I 0.115 ng/mL (0.000-0.060)
--- NOTE | 2016-09-27 14:15 | NUR ---
CONSENTS SIGNED AND PLACED ON CHART FOR HEART CATH TOMORROW.
[2016-09-27 16:14] VITALS: BP 146/80
[2016-09-27 18:58] LABS: TROPONIN-I 0.097 ng/mL (0.000-0.060)
--- NOTE | 2016-09-27 19:40 | NUR ---
FAMILY AT BEDISDE, DENIES NEEDS, NO DISTRESS NOTED, CALL LIGHT IN REACH, WILL CONTINUE TO MONITOR
[2016-09-27 20:00] VITALS: BP 152/75
[2016-09-28] VITALS: BP 123/77
--- NOTE | 2016-09-28 00:27 | NUR ---
CLOCK AND WATCH HANDS PAINTER AT BEDSIDE FOR VS. NEEDS ADDRESSED. CALL LIGHT IN REACH. WILL CONT TO MONITOR.
[2016-09-28 05:49] VITALS: BP 140/82
--- NOTE | 2016-09-28 06:13 | NUR ---
LYING IN BED, AT BEDSIDE, DENIES NEEDS
--- NOTE | 2016-09-28 06:50 | NUR ---
RECEIVED REPORT FROM TOW TRUCK DRIVER ABBEY MORENO LPN. PT IN BED, DENIES ANY NEEDS AT THIS TIME. CALL LIGHT IN REACH, FAMILY AT BEDSIDE, NAD NOTED, WILL CONTINUE TO MONITOR.
--- NOTE | 2016-09-28 07:24 | NUR ---
PRE-OP MEDS GIVEN TO PT. PT YELENA ANY NEEDS AT THIS TIME, ESTIMATE CLERK AT BEDSIDE TO DO VITAL SIGNS, FAMILY AT BEDSIDE, NAD NOTED, WILL CONTINUE TO MONITOR.
[2016-09-28 08:00] VITALS: BP 133/72
--- NOTE | 2016-09-28 08:22 | NUR ---
PT TRANSFERED TO INVENTORY MANAGEMENT SPECIALIST VIA BED, NAD NOTED.
--- NOTE | 2016-09-28 09:24 | NUR ---
RECEIVED PT BACK TO ROOM, NO BLEEDING NOTED TO RT GROIN. VITAL SIGNS STABLE, BP A LITTLE HIGH. ADMINISTERED ASPIRIN AND HCTZ ORDERED, PROVIDED PT WITH URINAL AND INFOMRED PT THAT HE NEEDS TO LAY FLAT FOR 2HRS. FAMILY AT BEDSIDE, CALL LIGHT IN REACH, NAD NOTED, WILL CONTINUE TO MONITOR.
[2016-09-28 10:32] VITALS: Ht 172.7 cm; Wt 116.7 kg
[2016-09-28 12:00] VITALS: BP 141/72
[2016-09-28 12:19] LABS: BASOPHILS 0.5 % (0-2); EOSINOPHILS 1.8 % (0-7); HEMATOCRIT 43.4 % (42.0-54.0); HEMOGLOBIN 14.3 g/dL (13.5-17.5); IMMATURE GRANULOCYTES 0.2 % (0-5); LYMPHOCYTES 37.9 % (15-50); MCH 31.7 pg (26.0-34.0); MCHC 32.9 g/dL (31.0-37.0); MCV 96.2 fL (80.0-100.0); MEAN PLATELET VOLUME 10.5 fL (7.4-10.4); MONOCYTES 6.1 % (2-11); NEUTROPHILS 53.5 % (40-80); PLATELET COUNT 285 10x3/uL (130-400); RBC 4.51 10x6/uL (4.20-6.10); RDW 13.1 % (11.5-14.5); WBC 6.5 10x3/uL (4.8-10.8)
[2016-09-28 12:28] LABS: HEMOGLOBIN A1C 5.9 % (4.8-6.0)
[2016-09-28 12:36] LABS: APTT 24.8 SECONDS (22.8-39.4)
[2016-09-28 12:54] LABS: ALBUMIN 3.7 g/dL (3.4-5.0); ANION GAP 12.5 mmol/L (8-16); BILIRUBIN - TOTAL 0.31 mg/dL (0.2-1.3); CALCIUM 9.1 mg/dL (8.5-10.1); CARBON DIOXIDE 29.2 mmol/L (21.0-32.0); CREATININE - SERUM 1.2 mg/dL (0.6-1.3); PHOSPHOROUS 3.9 mg/dL (2.5-4.9); POTASSIUM - SERUM 3.7 mmol/L (3.5-5.1); PROTEIN - SERUM 7.4 g/dL (6.4-8.2); T4 THYROXIN - FREE 0.99 ng/dL (0.76-1.46); THYROID STIMULATING HORMONE 2.59 uIU/mL (0.36-3.74); URIC ACID 7.2 mg/dL (2.6-7.2)
[2016-09-28 13:04] LABS: PLT FUNCT.(P2Y12) PLAVIX 197 PRU (194-418)
[2016-09-28 13:11] LABS: COLD SCREEN @ 4 DEGREES NEGATIVE (NEGATIVE); COLD SCREEN ROOM TEMP NEGATIVE (NEGATIVE)
[2016-09-28 16:00] VITALS: BP 143/81
[2016-09-28 18:12] LABS: APPEARANCE CLEAR (CLEAR); BILIRUBIN NEGATIVE (NEGATIVE); COLOR STRAW (YELLOW); GLUCOSE NEGATIVE (NEGATIVE); KETONE NEGATIVE (NEGATIVE); LEUKOCYTE ESTERASE NEGATIVE (NEGATIVE); NITRITE NEGATIVE (NEGATIVE); PROTEIN NEGATIVE (NEGATIVE); UROBILINOGEN NORMAL (NORMAL)
[2016-09-28 19:00] VITALS: BP 144/90
--- NOTE | 2016-09-28 21:35 | NUR ---
ADMIN BACTROBAN TO NARES PER ORDER. LOCKSTITCH FRONT EDGE TAPE SEWER PRESENT IN ROOM TO SHAVE HIM FOR CABG PROCEDURE TOMORROW. DENIES PAIN OR ANY OTHER NEEDS.
[2016-09-29] VITALS (35 sets, daily range): BP systolic 89–153; BP diastolic 55–88
--- NOTE | 2016-09-29 02:38 | NUR ---
RESTING QUIETLY WITH EYES CLOSED. RR 18 EVEN U/L. NO S/S OF PAIN OR DISCOMFORT. HIS IS SLEEPING IN RECLINER.
--- NOTE | 2016-09-29 06:00 | NUR ---
PRE-OP MEDS GIVEN PER ORDER. FAMILY MEMBERS PRESENT IN ROOM.
[2016-09-29 08:04] LABS: PLT FUNCT.(P2Y12) PLAVIX 204 PRU (194-418)
[2016-09-29 12:15] LABS: HEPATITIS C ANTIBODY <0.1 (0.0-0.9)
--- NOTE | 2016-09-29 15:30 | NUR ---
RECEIVED PT TO ROOM CV06 VIA BED, ICU MONITORS CONNECTED. TPM DDD 100, PACED ON CM. INVOS L53 R53.
--- NOTE | 2016-09-29 16:33 | NUR ---
FAMILY AT BEDSIDE, UPDATED BY DR FISCHER.
--- NOTE | 2016-09-29 17:52 | NUR ---
PT VENT PLACED ON CPAP.
--- NOTE | 2016-09-29 18:50 | NUR ---
SPOKE WITH DR FISCHER VIA PHONE, PT STATUS REPORTED. INSTRUCTED TO CHANGE TPM TO DDD 70
--- NOTE | 2016-09-29 19:05 | NUR ---
ASSESSMENT COMPLETED. SEE FLOW SHEET. 8.0 ETT TAPED AT LIP LINE @ 25CM, ON C-PAP AT THIS TIME. OGT TO LIWS WITH NO DRAINAGE AT THIS TIME. RT IJ SWAN @ 50CM WITH DRSG C-D-I WITH PLASMALYTE @ 100CC/HR VIA PUMP, DOPAMINE @ 5MCG/KG/MIN = 21.9CC/HR VIA PUMP, LEVOPHED @ 0.026 MCG/KG/MIN = 18CC/HR VIA PUMP, INSULIN @ 4 UNITS/HR = 4CC/HR VIA PUMP. LT DLSC, DRSG C-D-I WITH BURRITROL @ 10CC/HR VIA PUMP. ANT/POST CT TO 20CM SUCTION WITH NO AIR LEAK DETECTED WITH BLOODY DRAINAGE. PLEURAL CT TO 20CM SUCTION WITH NO AIR LEAK DETECTED WITH BLOODY DRAINAGE. MIDSTERNAL DRSG C-D-I. LT A-LINE ZEROED AND CALIBRATED WITH GOOD WAVE FORM. CVP AND PA TO SWAN, ZEROED AND CALIBRATED WITH GOOD WAVE FORM. CRITCORE CANO INTACT WITH CLEAR YELLOW URINE IN BAG. RT LEG DRSG C-D-I WITH BENJAMIN DRAIN X2 WITH BULB DEPRESSED WITH BLOODY DRAINAGE IN BULB. LT LEG WITH JOSE/SCD INTACT. TEMPORARY PACEMAKER INTACT @ DDD @ 70BPM, AO=10 VO=10, A=SENSE V=SENSE AT THIS TIME. ST ON THE MONITOR.
--- NOTE | 2016-09-29 19:55 | NUR ---
EXTUBATED TO 6L NC. COMPLAINING OF LT NECK PAIN. MORPHINE ART INSTRUCTOR STARTED. ST ON THE MONITOR.
--- NOTE | 2016-09-29 21:00 | NUR ---
AT BEDSIDE. UPDATE GIVEN. DENIES ANY NEEDS AT THIS TIME.
--- NOTE | 2016-09-29 21:45 | NUR ---
COMPLAINING OF NAUSEA. ZOFRAN 4MG IV GIVEN PER ORDERS.
--- NOTE | 2016-09-29 22:08 | NUR ---
PT HAVING FREQUENT PVC'S. STAT K ORDERED.
--- NOTE | 2016-09-29 23:37 | NUR ---
TEMP INCREASED TO 102.2. TYLENOL 650MG PO GIVEN PER ORDERS. H/H 7.5/ PER ABG'S. ORDER FOR 2 UNITS PRBC. BS 102, INSULIN OFF AT THIS TIME. ST WIHT PVC'S AND A FEW V-PACED BEATS ON THE MONITOR. DENIES ANY NEEDS AT THIS TIME.
--- NOTE | 2016-09-29 23:47 | NUR ---
1 UNIT PRBC STARTED PER ORDERS.
[2016-09-30] VITALS (80 sets, daily range): BP systolic 99–137; BP diastolic 53–74
--- NOTE | 2016-09-30 00:17 | NUR ---
1ST UNIT PRBC COMPLETED. PT TOLLERATED WELL.
--- NOTE | 2016-09-30 00:30 | NUR ---
2ND UNIT PRBC STARTED. WILL CONT TO MONITOR.
--- NOTE | 2016-09-30 03:00 | NUR ---
RADIOLOGY HERE FOR CXR. TOLLERATED WELL.
--- NOTE | 2016-09-30 06:00 | NUR ---
AT BEDSIDE. UPDATE GIVEN.
[2016-09-30 06:26] LABS: ALBUMIN 3.6 g/dL (3.4-5.0); ANION GAP 11.8 mmol/L (8-16); BILIRUBIN - TOTAL 0.57 mg/dL (0.2-1.3); CALCIUM 9.3 mg/dL (8.5-10.1); CARBON DIOXIDE 28.2 mmol/L (21.0-32.0); CREATININE - SERUM 1.3 mg/dL (0.6-1.3); PROTEIN - SERUM 5.6 g/dL (6.4-8.2)
[2016-09-30 06:46] LABS: HEMATOCRIT 27.1 % (42.0-54.0); HEMOGLOBIN 8.9 g/dL (13.5-17.5); MCH 29.8 pg (26.0-34.0); MCHC 32.8 g/dL (31.0-37.0); MCV 90.6 fL (80.0-100.0); MEAN PLATELET VOLUME 10.9 fL (7.4-10.4); RBC 2.99 10x6/uL (4.20-6.10); RDW 16.7 % (11.5-14.5); WBC 9.8 10x3/uL (4.8-10.8)
--- NOTE | 2016-09-30 07:00 | NUR ---
received report and assumed care of patient. Patient currently awake, alert and oriented. c/o midsternal pain at incision site. Right IJ swan lindsey at 51 cm, locked and secured with plasmalyte @100, insulin gtt @ 2 units/hr, and Dopamine @ 3mcgs. Left subclavian CVL with Buretrol and Morphine [employer] infusing. Left radial yeison with good wave form. Hand warm with good sensation. Anterior, posterior and left pleural CTs all draining sang fluid. Atrium systems @ 20 cm, no air leaks noted. Criticore diaz draining clear, yellow urine. Right leg harvest site, coban in place, BENJAMIN drains x 2 with sang drainage, bulbs compressed. Pedal pulses palpable bilaterally. See shift assessment flowsheet for all findings.
--- NOTE | 2016-09-30 07:52 | NUR ---
AM lab draw Potassium treated per standing protocol.
--- NOTE | 2016-09-30 08:06 | OP ---
PATIENT NAME: CHAD DU MEDICAL RECORD: [id number] :46 LOCATION:D.CVI D.CV06 ADMISSION DATE:09/28/16 SURGEON: ZACH RAMÍREZ MD DATE OF OPERATION: 09/28/2016 PROCEDURES: 1. Left heart catheterization. 2. Selective coronary angiography. 3. Left ventriculogram. INDICATION: Unstable angina. PROCEDURE IN DETAIL: After informed consent was obtained and after a detailed explanation of the risks, benefits as well as alternative therapies, the patient elected to proceed with angiogram and heart catheterization. The right femoral area was prepped and draped in normal sterile fashion. The right femoral artery was cannulated via modified Seldinger technique with placement of 7-Portuguese sheath. All catheters exchanged through this sheath. FINDINGS: The left ventriculogram was performed in standard 30-degree BUI view, there is inferoapical akinesis, overall ejection fraction is preserved; however, at 50%. SELECTIVE CORONARY ANGIOGRAPHY: 1. Left main is with no significant angiographic disease. 2. There is a relatively large ramus intermedius that is now subtotally occluded. 3. The left anterior descending has previously placed stents that are 70% in-stent restenosis distally. 4. Left circumflex has previously had a 95% stenosis of the first obtuse marginal. This is now totally occluded. The obtuse marginal fills via left to left collaterals. 5. Right coronary is chronically totally occluded. This fills via left to right collaterals. OVERALL IMPRESSION: Severe 3-vessel coronary disease. Evaluate for coronary bypass graft surgery. TRANSINT:[id number] Voice Confirmation ID: [id number] DOCUMENT ID: [id number] ZACH RAMÍREZ MD at 0806 CC: [id number] DICTATION DATE: 09/28/16 0859 CLIENT RELATIONSHIP CONSULTANT: 09/28/16 1132 ADM IN [id number] [place] [address]
--- NOTE | 2016-09-30 08:06 | HP ---
PATIENT: CHAD DU MEDICAL RECORD: [id number] ACCOUNT: [id number] LOCATION:[facility] D.CV06 : 48 ADMISSION DATE: 09/28/16 HISTORY AND PHYSICAL EXAMINATION DIAGNOSES: 1. Unstable angina. 2. Coronary artery disease. 3. Recent percutaneous transluminal coronary angioplasty stent left anterior descending. 4. Hyperlipidemia. HISTORY OF PRESENT ILLNESS: Mr. Du presents with anginal symptomatology and has been increasing, especially in cardiac rehabilitation over the past 2-3 weeks and has now progressed to rest pain. He has a history of coronary artery disease, July 08. It appears that Dr. Ricks tried to do a PTCA stent of the ramus intermedius that ended up only with a PTCA, the was a dissection of the LAD and he had stenting of the LAD. He as well has a 95% stenosis of the circumflex that was not addressed 100% stenosis of the RCA, but it appears he has left to right collaterals from the distal RCA. PHYSICAL EXAMINATION: GENERAL APPEARANCE: Well-nourished, well-developed, appears stated age. Level of distress, comfortable. PSYCHIATRIC: Mental status, alert, normal affect. Orientation, oriented to time, place and person. EYES: Lids and conjunctiva, noninjected. No discharge, no pallor. ENT: Lips, teeth, gums, normal dentition. Oropharynx, no cyanosis, no pallor. NECK: Carotid arteries, bilateral normal upstroke, no bruits, no thrills. JUGULAR VEINS: No jugular venous pressure or distention. CERVICAL LYMPH NODES: Nontender, nonenlarged. THYROID: Not enlarged. Nontender. No nodules. LUNGS: Respiratory effort, unlabored. CHEST: Normal curvature. No thoracic deformity. No chest wall tenderness. Percussion, resonant. Auscultation, clear. No wheezes, no rales, no rhonchi. CARDIOVASCULAR: Precordial exam, nondisplaced. No heaves or pericardial thrills. Rate and rhythm, regular. Heart sounds, normal S1, normal S2. No S3, no gallop, no rub. Systolic murmur, not heard. Diastolic murmur, not heard. EXTREMITIES: No cyanosis, no edema. Peripheral pulses, full and equal in all extremities, except as noted. No bruits appreciated. ABDOMEN: Soft, nondistended. Normal aorta. No bruit. Nontender. No masses. Liver, nontender, no hepatomegaly. Spleen, nontender, no splenomegaly. MUSCULOSKELETAL: No joint tenderness. No joint swelling. No erythema. NEUROLOGICAL: Normal gait, normal strength, normal tone. SKIN: Warm and dry. REVIEW OF SYSTEMS: The patient reports easy bruising but reports no swollen glands. The patient reports no fever, no night sweats, no significant weight gain, no significant weight loss. No significant exercise tolerance. The patient reports no dry eyes, no irritation, no vision change. Patient reports no difficulty hearing and no ear pain. Patient reports no frequent nose bleeds or nose and sinus problems. Patient reports on arm pain on exertion. No shortness of breath while lying down. No history of heart murmur. Patient reports no cough, no wheezing or coughing up blood. Patient reports no abdominal pain, no vomiting. Normal appetite. No diarrhea and not vomiting HISTORY AND PHYSICAL [id number] CHAD DU. No nausea and no constipation. Patient reports no incontinence. No difficulty urinating. No hematuria. No increased frequency. Patient reports no muscle aches. No weakness, no arthralgias, no back pain. No swelling of the extremities. Patient reports no abnormal mole, no jaundice, no rashes. Reports no loss of consciousness. No weakness and no numbness. No seizures, dizziness, or headaches. The patient reports no depression, no sleep disturbance, feeling safe in a relationship and no alcohol abuse. Patient reports on fatigue. Reports no runny nose or sinus pressure. No itching, no hives, and no frequent sneezing. OVERALL IMPRESSION: Unstable angina. This is most likely from the PTCA of the ramus intermedius or the 95% stenosis. Otherwise, both territories need to be readdressed. We will proceed with coronary angiography in the a.m. Further care depends upon findings of the angiography. TRANSINT:[id number] Voice Confirmation ID: [id number] DOCUMENT ID: [id number] ZACH RAMÍREZ MD at 0806 CC: [id number] DICTATION DATE: 09/27/16 1010 WELLHEAD PUMPER: 09/27/16 1051 ADM IN [place] [id number] [place] [address]
--- NOTE | 2016-09-30 08:06 | TEE ---
PATIENT:CHAD DU MEDICAL RECORD: [id number] LOCATION:[facility] AGE OF PATIENT: 66 ADMISSION DATE: 09/28/16 SEX: M REFERRING PHYSICIAN: INTERPRETING PHYSICIAN: ZACH GRAHAM MD TRANSESOPHAGEAL ECHOCARDIOGRAM CLAUDE CHARGE Y INDICATIONS: CABG PREMEDICATIONS: PATIENT'S RESPONSE PROCEDURE DOPPLER MEASUREMENTS: LVIT LA PA RA LVOT RVOT Asc. Ao AV Gradient Peak AV Mean AV Area MV Gradient Peak MV Mean MV Area INTERPRETATION: Doppler: 2-D: EF 50-55% COLOR FLOW DOPPLER TRACE/MILD MR NORMAL SALINE STUDY: MISCELLANOUS: DIAGNOSIS: PLAN: C Iron Worker:1 Dr. [place] Auditor: Laura CARRANZA COMMENTS: AALIYAH PATIENT DATE OF SERVICE: 09/29/2016 Transesophageal echo evaluation of valvular structures during bypass surgery. FINDINGS: 1. Left ventricular chamber size is within normal limits. Left ventricular systolic function is normal. Overall ejection fraction estimated at 55%. 2. Left atrium, right atrium, and right ventricular chamber sizes are within normal limits. TRANSESOPHAGEAL ECHOCARDIOGRAM REPORT [id number] CHAD DU 3. Valvular structures have normal structure and motion. 4. Doppler interrogation reveals only mild mitral regurgitation. No other valvular insufficiency or stenosis. 5. No evidence of pericardial effusion or left ventricular thrombus. TRANSINT:[id number] Voice Confirmation ID: [id number] DOCUMENT ID: [id number] at 0806 CC: [id number] DICTATION DATE: 09/29/16 1125 SUPPLY CHAIN GENERALIST: 09/30/16 0248 ADM IN [facility] [address] [place] [address]
--- NOTE | 2016-09-30 08:10 | NUR ---
in to see patient. Patient states he is doing well. TPM changed from DDD 100 to VVI 60, 0, 10. Plasmalyte decreased from 100 to 30mls/hr per .
--- NOTE | 2016-09-30 08:30 | NUR ---
Left pleural CT dressing saturated. Dressing removed, CT checked for patency, no clot noted, blood seen dripping through CT. Dressing changed, as well as TPM wires x2, Ant and Post CT dressing sites. Patient log rolled and bottom sheet and pad changed. Patient tolerated well.
--- NOTE | 2016-09-30 08:40 | NUR ---
in to see patient.
--- NOTE | 2016-09-30 08:51 | NUR ---
Patient pulling 750 on I/S, instructed on use, importance, pneumonia, cough and deep breathing. Patient verbalizes understanding.
--- NOTE | 2016-09-30 09:20 | NUR ---
Patients called, she will be up at 1200 visitation.
--- NOTE | 2016-09-30 09:57 | NUR ---
NUTRITION MONITORING & EVAL CHART REVIEWED. NURSING REPORTS DIET TO START TODAY. RD FOLLOWING
--- NOTE | 2016-09-30 10:38 | NUR ---
Patient is pulling 750 on IS, productive cough. Splinting with heart pillow.
--- NOTE | 2016-09-30 12:20 | NUR ---
Patients and friend at bedside, update given. Patient using I/S during commercial breaks.
--- NOTE | 2016-09-30 14:37 | NUR ---
Breathing tx administered per RT.
--- NOTE | 2016-09-30 15:05 | NUR ---
Patients here to see him. Patient denies needs. VSS.
--- NOTE | 2016-09-30 15:55 | NUR ---
Patient in waiting room, waiting for to round.
--- NOTE | 2016-09-30 16:49 | NUR ---
Patient c/o nausea, Zofran given per EMAR order.
--- NOTE | 2016-09-30 16:53 | NUR ---
Left pleural CT changed due to saturation. ABD pad used to reinforce dressing. Right leg harvest site dressing changed, 5 incision sites with lisandro, 2 BENJAMIN drains. Drains stripped, no clots noted. Incision sites without redness.
--- NOTE | 2016-09-30 17:15 | NUR ---
Patient states nausea is better at this time.
--- NOTE | 2016-09-30 17:56 | NUR ---
GÉNESIS Duenas at bedside, Left pleural CT assessed, Betadine ointment applied and new pressure dressing applied. Patient tolerated well.
--- NOTE | 2016-09-30 18:16 | NUR ---
Patients in room, update given. Patient denies needs.
--- NOTE | 2016-09-30 18:28 | NUR ---
here to see patient. POC discussed with patient and with , questions and concerns addressed. Pt denies needs.
--- NOTE | 2016-09-30 18:58 | NUR ---
ORAL CARE PERFORMED PER ORDER
[2016-10-01] VITALS (24 sets, daily range): BP systolic 114–154; BP diastolic 57–88
[2016-10-01 06:17] LABS: HEMATOCRIT 24.5 % (42.0-54.0); HEMOGLOBIN 8.2 g/dL (13.5-17.5); MCH 30.4 pg (26.0-34.0); MCHC 33.5 g/dL (31.0-37.0); MCV 90.7 fL (80.0-100.0); MEAN PLATELET VOLUME 10.5 fL (7.4-10.4); RBC 2.7 10x6/uL (4.20-6.10); RDW 16.3 % (11.5-14.5)
[2016-10-01 06:41] LABS: ALBUMIN 3.1 g/dL (3.4-5.0); BILIRUBIN - TOTAL 0.57 mg/dL (0.2-1.3); CALCIUM 7.9 mg/dL (8.5-10.1); CARBON DIOXIDE 27.2 mmol/L (21.0-32.0); CREATININE - SERUM 1.3 mg/dL (0.6-1.3); POTASSIUM - SERUM 4.2 mmol/L (3.5-5.1); PROTEIN - SERUM 5.7 g/dL (6.4-8.2)
--- NOTE | 2016-10-01 07:30 | NUR ---
SHIFT ASSESSMENT VIA FLOWSHEET, SEE FOR DETAILS.
--- NOTE | 2016-10-01 08:40 | NUR ---
DR FISCHER AT BEDSIDE TO D/C CHEST TUBES.
--- NOTE | 2016-10-01 09:00 | NUR ---
RIGHT NECK SWAN BAILEY AND LEFT RADIAL A-LINES D/C'D WITH CATH TIP INTACT.
--- NOTE | 2016-10-01 10:44 | NUR ---
PT OOB TO CHAIR.
--- NOTE | 2016-10-01 11:45 | NUR ---
PT REMAINS OOB IN CHAIR AT BEDSIDE, LUNCH TRAY PROVIDED. VSS, ST ON CM.
--- NOTE | 2016-10-01 13:47 | NUR ---
Is the patient Alert and Oriented? Yes 0 * How many steps to enter\exit or inside your home? 0 0 * PCP DR. MOHAMUD 0 * Pharmacy [facility] 0 * Preadmission Environment Home with Family 0 * ADLs Independent 0 * Equipment Cane CPAP Rolling Walker 0 * Other Equipment CPAP PROVIDED BY [facility] 0 * List name and contact numbers for known caregivers / representatives who currently or will assist patient after discharge: SPOUSE: GONZALEZ [phone] 0 * Community resources currently utilized None 0 * Additional services required to return to the preadmission environment? No 0 * Can the patient safely return to the preadmission environment? Yes 0 * Has this patient been hospitalized within the prior 30 days at any hospital? No PATIENT IS AWAKE AND ALERT. HE STATES HE WAS INDEPENDENT IN ALL ADL'S PRIOR TO COMING INTO THE HOSPITAL. PATIENT'S PCP IS DR. MOHAMUD. HE STATES HE GETS HIS MEDICATION AT [facility]. PATIENT HAD HOME HEALTH SEVERAL YRS AGO BUT DOES NOT RECALL THE NAME OF THE AGENCY. HE STATES HE HAS A WALKER, CANE AND CPAP. HIS CPAP IS SUPPLIED BY [facility]. PATIENT STATES THERE ARE NO STEPS TO ENTER HIS HOME. NO DISCHARGE NEEDS AT THIS TIME.
--- NOTE | 2016-10-01 18:31 | OP ---
PATIENT NAME: CHAD DU MEDICAL RECORD: [id number] :46 LOCATION:[facility] D.CV06 ADMISSION DATE:09/28/16 SURGEON: KRISHNA CAPUTO MD DATE OF OPERATION: 09/29/2016 SURGEON: Krishna Caputo MD. ANESTHESIA: General endotracheal, Dr. Smith. OPERATIONS PERFORMED: 1. Aortocoronary artery bypass. 2. Left internal thoracic to the left anterior descending. 3. Reverse saphenous vein graft to the first diagonal. 4. Reverse saphenous vein graft, sequential ramus, sequential obtuse marginal 2, coronary artery. PREOPERATIVE DIAGNOSIS: Intermediate coronary syndrome. POSTOPERATIVE DIAGNOSIS: Intermediate coronary syndrome. INDICATION FOR OPERATION: Severe occlusive coronary artery disease with unstable angina. FINDINGS OF THE OPERATION: The left internal thoracic and greater saphenous vein were of good quality for grafting. The target vessels were of good quality and caliber for grafting. ESTIMATED BLOOD LOSS: Cell Saver was used. DESCRIPTION OF PROCEDURE: After informed consent, adequate preoperative medication and evaluation, the patient was brought to the operating room, placed on the table in the supine position. After induction of general endotracheal anesthesia and application of appropriate monitoring devices, the chest, neck, abdomen, and both legs were prepped and draped in a sterile field, utilizing Betadine scrub, alcohol, and Betadine solution. A Betadine-impregnated drape was also used. Saphenous vein was harvested from the right thigh and prepared for reverse saphenous vein grafting. The wounds were closed over drains utilizing 3-0 Vicryl and skin lisandro. Median sternotomy incision was used and dissection carried down the fascia. Hemostasis maintained with electrocautery. The sternum was divided. Innominate vein was identified and protected. Left internal thoracic was taken down and prepared for grafting. The patient was given a calculated dose of heparin, cannulated in the standard fashion utilizing 1 aortic, 1 two-stage cannula in the atrium and inferior vena cava. The patient was placed on cardiopulmonary bypass, cooled to 32 degrees centigrade. A cross-clamp was placed just proximal to the aortic cannula and the patient was given cardioplegic solution through the aortic root. The patient was given a warm induction and cold maintenance. The patient was given cold intermittent cardioplegic solution throughout the procedure, either through the root, the grafts or a combination of both. The first vessel to be grafted was the obtuse marginal. It was grafted end-to-side utilizing a running 7-0 Prolene suture. The graft was then measured to the ramus and a [id number] anastomosis fashioned utilizing a running 7-0 Prolene suture. The graft was measured back to the aorta and a proximal anastomosis fashioned utilizing running 6-0 Prolene suture. Next, the first diagonal was grafted end-to-side utilizing a running 7-0 Prolene suture. The graft was measured back to the aorta and a proximal OPERATIVE REPORT [id number] CHAD DU anastomosis fashioned utilizing running 6-0 Prolene suture. Next, left internal thoracic was brought through the hole in pericardium, sutured left anterior descending end-to-side utilizing a running 8-0 Prolene suture. Pedicle was attached to epicardium with 6-0 Prolene suture. All maneuvers to remove trapped air were performed. The patient was given warm cardioplegic reperfusion and controlled reperfusion. The patient was rewarmed to 37 degrees centigrade. Two atrial and 2 ventricular pacing wires were placed on the heart and brought out through the epigastric area. The patient was weaned cardiopulmonary bypass. After being stable off bypass, he was given calculated dose of protamine to reverse the heparin. Hemostasis was assured. A #40 right angle and #36 chest tubes were brought in through the epigastric area and placed in mediastinum. A separate left pleural tube was connected to underwater seal suction. Chest was again irrigated. Instrument count and sponge count were correct times 2. Chest was closed in layers utilizing #7 wire on the sternum, #2 Vicryl in linea alba and pectoralis fascia. Subcutaneous tissue was approximated with 3-0 Vicryl and skin approximated with 3-0 subcuticular Vicryl. Sterile dressings were applied. The patient tolerated the procedure well and was transferred to CV ICU in satisfactory condition. TRANSINT:[id number] Voice Confirmation ID: [id number] DOCUMENT ID: [id number] KRISHNA CAPUTO MD at 1831 CC: [id number] DICTATION DATE: 09/29/16 1538 MOPPER: 09/30/16 0016 ADM IN [facility] [address] [place] [address]
--- NOTE | 2016-10-01 19:10 | NUR ---
ASSESSMENT COMPLETED. SEE FLOW SHEET. AT BEDSIDE. COMPLAINING ON INCISIONAL PAIN. PAIN MED NOT DUE AT THIS TIME. VERBALIZED UNDERSTANDING. TEMP PACEMAKER @ VVI @60BPM, SENSING AT THIS TIME. SR ON THE MONITOR.
--- NOTE | 2016-10-01 21:39 | NUR ---
PT SHAVING. COMPLAINING OF INCISIONAL PAIN. NORCO 10MG PO GIVEN PER ORDERS. WILL CONT TO MONITOR. HOME C-PAP SET UP AND PLACED ON BED SIDE TABLE.
--- NOTE | 2016-10-01 23:00 | NUR ---
REASSESSMENT COMPLETED. SEE FLOW SHEET. SR ON THE MONITOR.
[2016-10-02] VITALS (24 sets, daily range): BP systolic 111–155; BP diastolic 53–87
--- NOTE | 2016-10-02 01:00 | NUR ---
EYES CLOSED, RESP EVEN AND UNLABORED. SR ON THE MONITOR.
--- NOTE | 2016-10-02 03:00 | NUR ---
REASSESSMENT COMPLETED. DENIES ANY NEEDS.
--- NOTE | 2016-10-02 04:30 | NUR ---
TO RADIOLOGY FOR PA/LAT VIA W/C. TOLLERATED WELL.
[2016-10-02 06:35] LABS: HEMATOCRIT 23.8 % (42.0-54.0); HEMOGLOBIN 7.8 g/dL (13.5-17.5); MCH 30.1 pg (26.0-34.0); MCHC 32.8 g/dL (31.0-37.0); MCV 91.9 fL (80.0-100.0); MEAN PLATELET VOLUME 9.9 fL (7.4-10.4); RBC 2.59 10x6/uL (4.20-6.10); RDW 15.6 % (11.5-14.5); WBC 8.6 10x3/uL (4.8-10.8)
--- NOTE | 2016-10-02 06:56 | CN ---
PATIENT NAME:CHAD DU MEDICAL RECORD: [id number] : 46 LOCATION:[facility] ADMIT DATE: 09/28/16 ACCOUNT: [id number] CONSULTING PHYSICIAN: TOBY MOHAMUD MD REFERRING PHYSICIAN: ZACH GRAHAM MD DATE OF CONSULTATION: 10/01/2016 REASON FOR CONSULTATION: Medical management. Postoperative CABG and fever. HISTORY OF PRESENT ILLNESS: The patient is a 66-year-old male with history of recent PTCA of the left anterior descending artery by Dr. Ricks in July. The patient had been walking up his driveway last weekend had marked shortness of breath and chest pain, not relieved by antacids, partially relieved by nitroglycerin. He presented to the Emergency Room, seen by Dr. Graham, underwent cardiac catheterization on 09/27/2016 revealing a subtotally occluded large left ramus, LAD previously stented was 70% restenosed, left circumflex with 95% stenosis and totally occluded right coronary was totally occluded with collaterals. There is severe 3-vessel disease. Dr. Caputo was consulted and CABG was performed 2 days ago. He has had some low-grade fever postoperative and not sleeping well. His pain is much better. He is having his lines removed this morning. On 10/29/2016, he underwent aortocoronary artery bypass with left internal thoracic to the LAD, reverse saphenous vein graft to the first diagonal, reverse saphenous vein graft to sequential ramus and obtuse marginal coronary artery. PAST MEDICAL HISTORY: Severe osteoarthritis, lumbar disc disease, bilateral carpal tunnel syndrome, dyslipidemia with statin myalgias, essential hypertension, adult organic sleep apnea syndrome, allergic rhinitis. PAST SURGICAL HISTORY: He has had bilateral carpal tunnel release and anterior cervical fusion, left total knee replacement, remotely. SOCIAL HISTORY: He lives with his spouse. He is retired, does not use alcohol or smoke cigarettes. FAMILY HISTORY: Father of metastatic prostate cancer. Mother had COPD and heart disease. ALLERGIES: BIAXIN, CRESTOR, HYDROCODONE, LEVAQUIN, PENICILLIN, PRAVASTATIN, AND RESTORIL. HOME MEDICATIONS: Aspirin 81 mg a day, Voltaren 50 mg t.i.d. p.c., loratadine 10 mg daily, flaxseed oil 1000 mg daily, HCTZ 25 mg p.o. q.a.m., Livalo 4 mg at h.s. 1/2 tab, methocarbamol 750 mg twice a day for muscle spasm, Ocuvite vitamin 1 daily, Refresh eyedrops p.r.n. REVIEW OF SYSTEMS: CONSTITUTIONAL: He has been fatigued recently. No fever. HEENT: No recent visual change, sinus congestion. RESPIRATORY: Short of breath on exertion. No cough, sputum production or hemoptysis. CARDIAC: Exertional chest pain as mentioned above preoperatively, now he has postoperative chest wall pain. GASTROINTESTINAL: No nausea, vomiting, change in stools, blood per rectum or dyspepsia. CONSULT REPORT [id number] CHAD DU ENDOCRINE: Denies polyuria, polydipsia, heat or cold intolerance. NEUROLOGIC: No prior history of stroke, TIA, or vascular headaches. INTEGUMENT: No rash or itching. PSYCHIATRIC: Denies depressed mood. MUSCULOSKELETAL: Chronic arthritis, severe in his lumbar spine and hands. PHYSICAL EXAMINATION: VITAL SIGNS: Showed a temp 99.9, pulse of 105, respirations are 20, blood pressure 144/62, O2 sat 95% on 3 liters. GENERAL: The patient is alert and oriented. HEENT: Eyes are clear. NECK: No bruits or masses. CHEST: Clear. Distant breath sounds. No wheezes. HEART: Tachycardic without murmur. ABDOMEN: Obese, soft, nontender ____ organomegaly. GENITOURINARY: Unremarkable. EXTREMITIES: He has slight pretibial edema 1+ bilaterally. He has Heberden's nodes in the DIP joint of both of his hands. NEUROLOGIC: He is oriented to person, place, and time. Cranial nerves are grossly intact. Sensory intact. Gait not tested. LABORATORY DATA: Shows H&H 8.2 and 24.5 with a white count of 10,000. Chemistries: Sodium 133, BUN and creatinine are 27 and 1.3, blood sugar 127-123, calcium 7.9. AST is 115, ALT is 61, cholesterol is 160, LDL 72, HDL 33, ratio 4.6. Thyroid functions were normal. Urinalysis unremarkable. Hepatitis serology is negative ____ are negative. Chest x-ray shows postoperative changes with Austwell-Angelika catheter in place. Atelectasis in the left mid lung field. Right lung is clear. ASSESSMENT: Postoperative day #2 post 3-vessel coronary artery bypass grafting, hypertension, hyperlipidemia, history of statin myalgias, osteoarthritis, insomnia, mild bilateral carotid stenosis. PLAN: Consider spirometry for fever. Further workup pending clinical course. Restoril h.s. for sleep. TRANSINT:[id number] Voice Confirmation ID: [id number] DOCUMENT ID: [id number] TOBY MOHAMUD MD at 0656 CC: [id number] DICTATION DATE: 10/01/16 1355 SANFORIZER: 10/02/16 0041 ADM IN [place] [id number] [place] [id number]
[2016-10-02 06:57] LABS: ALBUMIN 2.9 g/dL (3.4-5.0); ANION GAP 10.5 mmol/L (8-16); BILIRUBIN - TOTAL 0.5 mg/dL (0.2-1.3); CALCIUM 7.8 mg/dL (8.5-10.1); CARBON DIOXIDE 29.3 mmol/L (21.0-32.0); CREATININE - SERUM 1.1 mg/dL (0.6-1.3); POTASSIUM - SERUM 3.8 mmol/L (3.5-5.1)
--- NOTE | 2016-10-02 08:45 | NUR ---
UP TO WHEELCHAIR PER PT REQUEST.
--- NOTE | 2016-10-02 10:10 | NUR ---
Nutrition Follow Up: Pt reported that his appetite is poor at this time. He said that he is not eating well. Pt denied any nausea. He agreed to try Ensure with meals and prefers vanilla flavor. Pt is eating 67% meal avg on an AHA diet. Wt gain 7# since admit. I>O. +BM 09/28/16. Labs reviewed - Na low. Meds noted. Rec continue current diet. Will send Ensure with meals. RD will continue to monitor pt progress.
--- NOTE | 2016-10-02 17:00 | NUR ---
AFTER AMBULATING TO BED FROM CHAIR PT LAID SUPINE AND COUGHED. TONIC CLONIC MOVEMENTS NOTED ACCOMPANIED BY HIS EYES ROLLING BACK IN HIS HEAD. DID NOT RESPOND TO VERBAL STIMULI OR A NIPPLE TWIST. TAP AND SHOUT PERFORMED. PT COMES TO REMEMBERS COUGHING. DOES NOT REMEMBER NIPPLE TWIST OR TAP AND SHOUT. CALLED R.T. FOR ABG.
--- NOTE | 2016-10-02 17:25 | NUR ---
DR. FISCHER NOTIFIED OF PT HAVING TONIC CLONIC MOVEMENT AND EYES ROLLING BACK AFTER COUGHING. NO NEW ORDERS. STATES TO MONITOR PT AND NOTIFY HIM IF PT HAS ANOTHER EPISODE.
--- NOTE | 2016-10-02 17:44 | NUR ---
LEG DRESSINGS CHANGED.
--- NOTE | 2016-10-02 19:45 | NUR ---
RECEIVED CARE OF PT, ASSESSMENT PER FLOWSHEET. PT ALERT AND ORIENTED, ON 3L O2 VIA NC, BREATH SOUNDS DIMINISHED IN BILATERAL BASES, PPP, RT LEG DRESSING CDI, SUBSTERNAL AND MIDSTERNAL DRESSINGS CDI. TPM VVI AT 60, PACER WIRES SECURED, HR SR AT A RATE OF 95 ON CM, PRODUCTIVE COUGH NOTED WITH DUNN SPUTUM, PT DENIES ANY NEEDS AT THIS TIME, CALL LIGHT IN REACH.
--- NOTE | 2016-10-02 21:04 | NUR ---
NO VISITORS PRESENT AT THIS TIME, PT RESTING WITH EYES CLOSED, VSS.
--- NOTE | 2016-10-02 21:11 | NUR ---
PT CALLED, PASSWORD PROVIDED, UPDATE GIVEN PER REQUEST.
--- NOTE | 2016-10-02 23:15 | NUR ---
REASSESSMENT PER FLOWSHEET, ASSISTED PT TO BSC, VOIDED MODERATE AMT OF FORMED BROWN STOOL, ASSISTED WITH PERICARE, BACK TO BED WITHOUT ISSUE. BED LOW, CALL LIGHT IN REACH.
[2016-10-03] VITALS (24 sets, daily range): BP systolic 103–147; BP diastolic 52–83
--- NOTE | 2016-10-03 01:08 | NUR ---
ASSISTED PT TO SIDE OF BED, VOIDED 300 CC OF SRINI COLORED URINE VIA URINAL, PERICARE PROVIDED. REPOSITIONED FOR COMFORT, DENIES ANY OTHER NEEDS, VSS, CALL LIGHT IN REACH.
--- NOTE | 2016-10-03 03:40 | NUR ---
REASSESSMENT PER FLOWSHEET, NO ACUTE CHANGES NOTED. HR REMAINS SR ON CM AT A RATE OF 80, ICE WATER PROVIDED PER REQUEST, CONT POC.
--- NOTE | 2016-10-03 05:05 | NUR ---
BACK FROM RADIOLOGY FOR PA AND LAT CXR, COMPLETE BATH AND LINEN CHANGE DONE, PT DENIES ANY OTHER NEEDS AT THIS TIME, REMAINS IN CHAIR, VSS.
[2016-10-03 06:14] LABS: HEMATOCRIT 23.5 % (42.0-54.0); HEMOGLOBIN 7.8 g/dL (13.5-17.5); MCH 30.4 pg (26.0-34.0); MCHC 33.2 g/dL (31.0-37.0); MCV 91.4 fL (80.0-100.0); MEAN PLATELET VOLUME 9.8 fL (7.4-10.4); RBC 2.57 10x6/uL (4.20-6.10); RDW 15.6 % (11.5-14.5); WBC 9.3 10x3/uL (4.8-10.8)
[2016-10-03 06:50] LABS: ALBUMIN 2.9 g/dL (3.4-5.0); ANION GAP 8.6 mmol/L (8-16); BILIRUBIN - TOTAL 0.55 mg/dL (0.2-1.3); CALCIUM 8.2 mg/dL (8.5-10.1); CARBON DIOXIDE 31.2 mmol/L (21.0-32.0); CREATININE - SERUM 1.1 mg/dL (0.6-1.3); POTASSIUM - SERUM 3.8 mmol/L (3.5-5.1); PROTEIN - SERUM 6.3 g/dL (6.4-8.2)
--- NOTE | 2016-10-03 09:09 | NUR ---
AMBULATING WITH P.T. WITH TELEMETRY AND O2.
--- NOTE | 2016-10-03 12:16 | NUR ---
DR. FISCHER AT BEDSIDE.
--- NOTE | 2016-10-03 18:41 | NUR ---
ORAL CARE WITH PERIDEX PERFORMED ORDERED
--- NOTE | 2016-10-03 19:20 | NUR ---
RESUMED CARE OF PT, ASSESSMENT PER FLOWSHEET. EMPTIED 200 CC FROM URINAL, PERICARE PROVIDED.
--- NOTE | 2016-10-03 19:22 | NUR ---
PT C/O INCISIONAL PAIN 5/10 ON PAIN SCALE, PRN PO PAIN MED ADMINISTERED PER REQUEST, WILL MONITOR.
--- NOTE | 2016-10-03 21:15 | NUR ---
PT RESTING IN BED WITH HOME CPAP IN PLACE, AROUSES EASILY TO VOICE, VSS, CALL LIGHT IN REACH, BED LOW, DENIES ANY NEEDS.
--- NOTE | 2016-10-03 23:30 | NUR ---
REASSESSMENT PER FLOWSHEET, NO ACUTE CHANGES NOTED AT THIS TIME, PT DENIES ANY NEEDS, BED LOW, CALL LIGHT IN REACH.
[2016-10-04] VITALS (24 sets, daily range): BP systolic 109–146; BP diastolic 57–83
--- NOTE | 2016-10-04 01:15 | NUR ---
PT RESTING IN BED WITH EYES CLOSED, VSS, AROUSES EASILY TO VOICE, ALL NEEDS DENIED.
--- NOTE | 2016-10-04 03:10 | NUR ---
REASSESSMENT PER FLOWSHEET, NO ACUTE CHANGES NOTED AT THIS TIME. ASSISTED WITH URINAL, PERICARE PROVIDED, VOIDED 250 CC OF URINE.
--- NOTE | 2016-10-04 04:45 | NUR ---
TPM BATTERY CHANGED PER MD ORDER, REMAINS V-SENSING AT THIS TIME. VSS
[2016-10-04 06:06] LABS: HEMATOCRIT 23.6 % (42.0-54.0); HEMOGLOBIN 7.8 g/dL (13.5-17.5); MCH 30.5 pg (26.0-34.0); MCHC 33.1 g/dL (31.0-37.0); MCV 92.2 fL (80.0-100.0); MEAN PLATELET VOLUME 9.8 fL (7.4-10.4); RBC 2.56 10x6/uL (4.20-6.10); RDW 15.5 % (11.5-14.5); WBC 8.3 10x3/uL (4.8-10.8)
[2016-10-04 07:16] LABS: ALBUMIN 2.7 g/dL (3.4-5.0); ANION GAP 10.7 mmol/L (8-16); BILIRUBIN - TOTAL 0.61 mg/dL (0.2-1.3); CARBON DIOXIDE 31.9 mmol/L (21.0-32.0); CREATININE - SERUM 1.1 mg/dL (0.6-1.3); POTASSIUM - SERUM 3.6 mmol/L (3.5-5.1); PROTEIN - SERUM 6.4 g/dL (6.4-8.2)
--- NOTE | 2016-10-04 09:14 | NUR ---
ORAL CARE DONE WITH PERIDEX
--- NOTE | 2016-10-04 10:17 | NUR ---
PT COUGHED AND "KAT WENT OUT" STATES SEVERAL YEARS AGO AFTER TAKING "SOME MEDICINE" HIS DIAPHRAGM "LOCKS UP WHEN I COUGH" PT IMMEDIATELY SLUMPED OVER IN CHAIR WITH A FAR OFF GAZE. NO CHANGE IN VITAL SIGNS. AROUSABLE TO VOICE. STATES HE REMEMBERS COUGHING AND ASKS "DID THAT JUST HAPPEN AGAIN" INFORMED YES. NO C/O AT THIS TIME. REPOSITIONED IN CHAIR C/L IN REACH.
--- NOTE | 2016-10-04 10:56 | NUR ---
DR. MOHAMUD AT BEDSIDE. MADE AWARE OF PT'S EPISODE THIS AM. WILL ORDER EEG.
--- NOTE | 2016-10-04 19:03 | NUR ---
ORAL CARE WITH PERIDEX PERFORMED ORDERED
--- NOTE | 2016-10-04 20:00 | NUR ---
RESUMED CARE OF PT, ASSESSMENT PER FLOWSHEET. BREATH SOUNDS CTA WITH DIM BASES, HR SR AT A RATE OF 81 ON CM, TPM VVI OF 60 SENSING ONLY, WIRES SECURED TO CHEST, DRESSING CDI, PPP, SKIN ASSESSMENT PER FLOWSHEET. DENIES ANY NEEDS AT THIS TIME, VSS, WILL MONITOR.
--- NOTE | 2016-10-04 23:30 | NUR ---
REASSESSMENT PER FLOWSHEET, NO ACUTE CHANGES NOTED. PT DENIES ANY NEEDS AT THIS TIME, VSS, CONT TO MONITOR.
[2016-10-05] VITALS (23 sets, daily range): BP systolic 108–147; BP diastolic 46–75
--- NOTE | 2016-10-05 02:10 | NUR ---
PT RESTING IN BED WITH EYES CLOSED, HOME CPAP IN PLACE, HR SR ON CM, CONT POC.
--- NOTE | 2016-10-05 03:50 | NUR ---
PT PASSED SOFT, BROWN BM. PERICARE PROVIDED, COMPLETE GOWN AND LINEN CHANGE DONE.
--- NOTE | 2016-10-05 06:15 | NUR ---
PT CALLED AND UPDATED PER PT REQUEST, ALL QUESTIONS ANSWERED.
[2016-10-05 06:42] LABS: HEMATOCRIT 23.5 % (42.0-54.0); HEMOGLOBIN 7.7 g/dL (13.5-17.5); MCH 30.6 pg (26.0-34.0); MCHC 32.8 g/dL (31.0-37.0); MCV 93.3 fL (80.0-100.0); MEAN PLATELET VOLUME 9.6 fL (7.4-10.4); RBC 2.52 10x6/uL (4.20-6.10); RDW 15.4 % (11.5-14.5)
[2016-10-05 07:16] LABS: ALBUMIN 2.7 g/dL (3.4-5.0); ANION GAP 12.5 mmol/L (8-16); BILIRUBIN - TOTAL 0.58 mg/dL (0.2-1.3); CREATININE - SERUM 1.1 mg/dL (0.6-1.3); POTASSIUM - SERUM 3.5 mmol/L (3.5-5.1); PROTEIN - SERUM 6.2 g/dL (6.4-8.2)
--- NOTE | 2016-10-05 08:00 | NUR ---
UP IN CHAIR NO CO AT TIME. EATING BREAKFAST.
--- NOTE | 2016-10-05 09:30 | NUR ---
NUTRITION MONITORING & EVAL CHART REVIEWED, PT VISIT. UP WITH PHYSICAL THERAPY. PT REPORTS TOLERATING AHA DIET THIS AM. RD FOLLOWING
--- NOTE | 2016-10-05 11:00 | NUR ---
UP IN CHAIR NO CO AT TIME. PULLING 1250 ON IS.
--- NOTE | 2016-10-05 17:00 | NUR ---
UP IN CHAIR VOICES NO CO AT TIME.
--- NOTE | 2016-10-05 18:53 | NUR ---
ORAL CARE WITH PERIDEX PERFORMED ORDERED
--- NOTE | 2016-10-05 19:29 | NUR ---
PT C/O INCISIONAL PAIN 5/10 ON PAIN SCALE, PRN PO PAIN MED ADMINISTERED PER PT REQUEST, WILL MONITOR FOR DESIRED EFFECT.
--- NOTE | 2016-10-05 20:45 | NUR ---
EMPTIED 150 CC OF URINE FROM URINAL, ASSISTED PT TO BED. REPEATED NON PRODUCTIVE COUGH NOTED, PT HAVING MODERATE DIFFICULTY CATCHING BREATH. ASSISTED IMMEDIATELY TO STRAIGHT UPRIGHT POSITION, NO CHANGES IN HEART RHYTHM OR VS NOTED, PT MILDY SOB BUT ABLE TO VERBALIZE, O2 SAT AT [address] FISCHER NOTIFIED, ORDERS RECEIVED. WILL MONITOR.
--- NOTE | 2016-10-05 21:42 | NUR ---
PT CALLED, PASSWORD PROVIDED, UPDATE GIVEN.
--- NOTE | 2016-10-05 23:30 | NUR ---
REASSESSMENT PER FLOWSHEET, NO ACUTE CHANGES NOTED. PT RESTING IN CHAIR IN NO APPARENT DISTRESS, CALL LIGHT IN REACH, DENIES ANY NEEDS.
[2016-10-06] VITALS (24 sets, daily range): BP systolic 104–148; BP diastolic 53–79
--- NOTE | 2016-10-06 00:45 | NUR ---
FIRST OF 2 UNITS OF PRBC'S ADMINISTERED PER ORDER, 40 MG OF LASIX GIVEN.
--- NOTE | 2016-10-06 03:16 | NUR ---
PT SITTING UP IN CHAIR, VSS, CALLED, PASSWORD PROVIDED, UPDATE GIVEN, ALL QUESTIONS ANSWERED.
--- NOTE | 2016-10-06 05:00 | NUR ---
BACK FROM RADIOLOGY FOR PA AND LAT CXR, ASSISTED PT BACK TO BED, ICU MONITORS RE-ESTABLISHED, VSS, ICE PROVIDED PER REQUEST.
--- NOTE | 2016-10-06 05:30 | NUR ---
PT CALLED, PASSWORD PROVIDED, UPDATE GIVEN AND ALL QUESTIONS ANSWERED.
[2016-10-06 08:08] LABS: BASOPHILS 0.2 % (0-2); EOSINOPHILS 1.8 % (0-7); IMMATURE GRANULOCYTES 1.4 % (0-5); LYMPHOCYTES 13.9 % (15-50); MCH 30.5 pg (26.0-34.0); MCV 92.2 fL (80.0-100.0); MEAN PLATELET VOLUME 9.5 fL (7.4-10.4); MONOCYTES 6.9 % (2-11); NEUTROPHILS 75.8 % (40-80); RDW 16.1 % (11.5-14.5); WBC 11.2 10x3/uL (4.8-10.8)
[2016-10-06 08:13] LABS: ANION GAP 10.5 mmol/L (8-16); CALCIUM 8.3 mg/dL (8.5-10.1); CARBON DIOXIDE 30.7 mmol/L (21.0-32.0); CREATININE - SERUM 1.3 mg/dL (0.6-1.3); POTASSIUM - SERUM 3.2 mmol/L (3.5-5.1)
[2016-10-06 08:15] LABS: HEMATOCRIT 33.3 % (42.0-54.0); PLATELET COUNT 390 10x3/uL (130-400); RBC 3.61 10x6/uL (4.20-6.10)
--- NOTE | 2016-10-06 19:38 | NUR ---
REPORT RECIEVED. ASSESSMENT COMPLETE PER FLOW SHEET. VSS. PT AWAKE ALERT ORIENTED X3. AT BEDSIDE. O2 VIA NC 2L O2 SAT 98% NO COUGH PRESENT. BILAT LUNGS ALL LOBES CLEAR. HEART S1S HR 82 NSR. TPM PATENT DRSG CDI VVI 60 VMA 10 SENSITIVITY 2. MIDSTERNAL DRSG CDI. R LEG DRSG CDI. L SUBCLAVIAN PATENT DRSG CDI. BS ACTIVE X4. DENIES N/V. GENERALIZED EDEMA NOTED X4 EXTREMETIES. PULSES PALP +2 BILAT RADIAL AND PEDAL PULSES. EULALIA GARCIA'S SCD'S ON DENIES PAIN OR NEEDS. WILL CONTINUE TO MONITOR.
--- NOTE | 2016-10-06 23:38 | NUR ---
REASSESSMENT COMPLETE PER FLOW SHEET. VSS. NO NEW CHANGES. WILL CONTINUE TO MONTIOR.
[2016-10-07] VITALS (24 sets, daily range): BP systolic 100–138; BP diastolic 48–74
--- NOTE | 2016-10-07 03:27 | NUR ---
REASSESSMENT COMPLETE PER FLOW SHEET. VSS. NO NEW CHANGES. WILL CONTINUE TO MONITOR.
--- NOTE | 2016-10-07 05:30 | NUR ---
L SUBCLAV DRSG CHANGE ADM. NO NEW FINDINGS. TPM DRSG CHANGE ADM. NO NEW FINDINGS. VSS. WILL CONTINUE TO MONITOR.
--- NOTE | 2016-10-07 10:06 | NUR ---
Nutrition Follow Up: Pt reported that his appetite is improving. He stated that he likes the Ensure but it is too much right now. He requested the Ensure to be d/c. Pt is eating 42% meal avg on an AHA diet. I<O. +BM 10/05/16. Wt loss since admit noted. Labs reviewed - Glucose WNL. Meds noted including Lasix, Reglan, Albumin. Rec continue current diet. Will d/c Ensure. RD will continue to monitor pt progress.
[2016-10-07 10:20] LABS: HEMATOCRIT 32.2 % (42.0-54.0); HEMOGLOBIN 10.5 g/dL (13.5-17.5); MCH 30.3 pg (26.0-34.0); MCHC 32.6 g/dL (31.0-37.0); MCV 93.1 fL (80.0-100.0); MEAN PLATELET VOLUME 9.1 fL (7.4-10.4); PLATELET COUNT 416 10x3/uL (130-400); RBC 3.46 10x6/uL (4.20-6.10); RDW 16.6 % (11.5-14.5); WBC 9.8 10x3/uL (4.8-10.8)
[2016-10-07 10:37] LABS: ANION GAP 9.5 mmol/L (8-16); CALCIUM 7.9 mg/dL (8.5-10.1); CARBON DIOXIDE 29.8 mmol/L (21.0-32.0); CREATININE - SERUM 1.2 mg/dL (0.6-1.3); POTASSIUM - SERUM 3.3 mmol/L (3.5-5.1)
[2016-10-07 10:55] LABS: EOSINOPHILS 7 % (0-7); LYMPHOCYTES 12 % (15-50); MONOCYTES 5 % (2-11); NEUTROPHILS 76 % (40-80); PLATELET ESTIMATE NORMAL
--- NOTE | 2016-10-07 19:38 | NUR ---
REPORT RECIEVED. ASSESSMENT COMPLETE PER FLOW SHEET. DENIES PAIN OR NEEDS. VSS. PT AWAKE ALERT ORIENTED X3. O2 VIA RA O2 SAT 96% RR 16 NON LABORED NO COUGH PRESENT AT THIS TIME. BILAT LUNGS CLEAR ALL LBOES. HEART S1S2 HR 82 NSR. TPM PATENT DRSG CDI VVI 60 VMA 10 SENSITIVYT 2. BS ACTIVE X4. GERNALIZED EDEMA NOTED X4 EXTREMETIES BILAT PEDAL PULSES +2. BILAT RADIAL PULSES +2. GIVEN ICE WATER AND ICE CHIPS PER REQUEST FOR COMFORT. DENIES FURTHER NEEDS.
--- NOTE | 2016-10-07 21:20 | NUR ---
FAMILY AT BEDSIDE. NO NEW CHANGES. DENIES NEEDS. WILL CONTINUE TO MONITOR.
--- NOTE | 2016-10-07 23:28 | NUR ---
REASSESSMENT COMPLETE PER FLOW SHEET. VSS. NO NEW CHANGES. DENEIS NEEDS OR PAIN. WILL CONTINUE TO MONITOR.
[2016-10-08] VITALS (25 sets, daily range): BP systolic 101–129; BP diastolic 51–77
--- NOTE | 2016-10-08 01:17 | NUR ---
UP OOB TO BR. 200CC VOID NOTED. NEEDS MET
--- NOTE | 2016-10-08 03:34 | NUR ---
REASSESSMENT COMPLETE PER FLOW SHEET. VSS. NO NEW CHANGES. RT AT BEDSIDE TX ADM. DENIES NEEDS. WILL CONTNIUE TO MONITOR.
--- NOTE | 2016-10-08 05:26 | NUR ---
ASSISTED TO BR WITHOUT DIFFICULTY. SMALL BM NOTED. DENIES FURTHER NEEDS. LINEN CHANGE COMPELTE REFUSES BATH. DENIES PAIN. WILL CONTINUE TO MONTIOR. VSS
[2016-10-08 06:09] LABS: BASOPHILS 0.2 % (0-2); EOSINOPHILS 5.9 % (0-7); HEMATOCRIT 32.5 % (42.0-54.0); HEMOGLOBIN 10.5 g/dL (13.5-17.5); IMMATURE GRANULOCYTES 0.7 % (0-5); LYMPHOCYTES 17.8 % (15-50); MCH 30.4 pg (26.0-34.0); MCHC 32.3 g/dL (31.0-37.0); MCV 94.2 fL (80.0-100.0); MONOCYTES 9.1 % (2-11); NEUTROPHILS 66.3 % (40-80); PLATELET COUNT 463 10x3/uL (130-400); RBC 3.45 10x6/uL (4.20-6.10); RDW 16.9 % (11.5-14.5); WBC 9.5 10x3/uL (4.8-10.8)
[2016-10-08 06:48] LABS: ALBUMIN 2.7 g/dL (3.4-5.0); BILIRUBIN - DIRECT 0.13 mg/dL (0.00-0.30); BILIRUBIN - INDIRECT 0.47 mg/dL (0.00-1.00); BILIRUBIN - TOTAL 0.6 mg/dL (0.2-1.3); CALCIUM 8.5 mg/dL (8.5-10.1); CARBON DIOXIDE 28.5 mmol/L (21.0-32.0); CREATININE - SERUM 1.2 mg/dL (0.6-1.3); POTASSIUM - SERUM 3.5 mmol/L (3.5-5.1); PROTEIN - SERUM 6.4 g/dL (6.4-8.2)
--- NOTE | 2016-10-08 07:00 | NUR ---
PT REPORT REC'D, PT CARE ASSUMED. PT AAOX4 SITTING UP IN BED, NO C/O PAIN, VSS. LEFT SUBCLAVIAN CVL S/L'ED DRESSING CDI. PT USES BATHROOM NEEDED. MIDSTERNAL INCISION, DRESSING CDI, SUBSTERNAL TPM WIRES SECURED TO CHEST, DRESSING CDI. RIGHT LEG HARVEST SITES, INCSIONS CDI. SHIFT ASSESSMENT COMPLETED, SEE FLOW SHEET. ROOM FREE OF CLUTTER, CALL LIGHT IN REACH. PT AT THE BEDSIDE. WILL CONTINUE TO MONITOR PT.
--- NOTE | 2016-10-08 08:15 | NUR ---
DR. MOHAMUD AT THE BEDSIDE SPEAKING WITH PT AND FAMILY. ARMIN.
--- NOTE | 2016-10-08 11:00 | NUR ---
PHYSCIAL PT IN WITH PT, PT AMBULATED APPROX 500FT PT TOLERATED WELL, WILL CONTINUE TO MONITOR PT.
--- NOTE | 2016-10-08 11:28 | NUR ---
REASSESSMENT COMPLETED, SEE FLOW SHEET. ROOM FREE OF CLUTTER, CALL LIGHT IN REACH, WILL CONTINUE TO MONITOR PT.
--- NOTE | 2016-10-08 15:00 | NUR ---
PT RESTING WITH EYES CLOSED, NO C/O PAIN, NO SIGNS OF DISTRESS. PT AT THE BEDSIDE, ALL QUETIONS ANSWERED, VSS. REASSESSMENT COMPLETED, SEE FLOW SHEET. ROOM FREE OF CLUTTER, CALL LIGHT IN REACH, WILL CONTINUE TO MONITOR PT.
--- NOTE | 2016-10-08 19:45 | NUR ---
ASSESSMENT COMPLETED. SEE ASSESSMENT FLOWSHEET FOR DETAILS. AT BEDSIDE. WILL MONITOR.
--- NOTE | 2016-10-08 20:45 | NUR ---
2100 MEDS GIVEN. SUBSTERNAL DRSG CHANGED TO OLD CT SITES & TPM WIRE SITES PER PROTOCOL. XANAX GIVEN PER REQUEST. HAIR CLIPPED WITH CLIPPERS TO FACIAL HAIR. CPAP PLACED ON PER SELF. AT BEDSIDE.
--- NOTE | 2016-10-08 21:50 | NUR ---
EYES CLOSED. WEARING CPAP. SWITCHED FINGERS FOR HIS O2 SAT MONITOR. O2 SAT READING 96%.
--- NOTE | 2016-10-08 23:30 | NUR ---
SCREAMED OUT "HELP" IT SOUNDED LIKE. RAN IN ROOM, COUGHING NOTED. CPAP ON. REMOVED CPAP MASK FROM NARES. HAD A RUN OF PACED BEATS ON THE MONITOR-STRIP PRINTED OUT AFTER THE FACT. HR DECREASED IN THE 60'S. MINUTES LATER REPORTS HE WAS JUST ASLEEP AND THEN WOKE UP TO NURSING STAFF AT THE BEDSIDE. DOES NOT RECALL HOLLERING OUT. SOUND OF CONGESTION/SALIVA POSSIBLY IN ORAL CAVITY WHEN COUGHING. R.T. PAGED TO INFORM OF NEED FOR 2300 BREATHING TREATMENT W/ LIDOCAINE BUT ENTERED CV-ICU UPON PAGE RECEIVED. 2340: BREATHING TREATMENT W/ LIDO STARTED PER ROBYN WITH R.T. HAVING SOME MUSCLE TIGHTNESS TO LEFT POSTERIOR BACK TOWARDS MIDLINE. PLACED PRESSURE BALL PER REQUEST TO BACK AFTER PULLING UP IN BED. 0000: WARM BLANET GIVEN PER REQUEST AND LIGHTS IN ROOM TURNED OFF. CPAP MASK LEFT OFF PER REQUEST AT THIS TIME AND WILL MONITOR CLOSELY. ANAMARIA
[2016-10-09] VITALS (11 sets, daily range): BP systolic 98–122; BP diastolic 38–64
--- NOTE | 2016-10-09 01:10 | NUR ---
AWAKE. SNORTED IN HER ASLEEP WHEN I WALKED INTO ROOM, PT SAID IT WAS HIS , SHE AGREED. CPAP MACHINE PLACED BACK ON HIS NARES PER REQUEST. WILL MONITOR.
--- NOTE | 2016-10-09 02:35 | NUR ---
AWOKE. STARTED COUGHING. HR REMAINS STABLE. "COKE" GIVEN PER REQUEST. WILL CALL R.T. BY 0300 IF NOT ALREADY HERE.
--- NOTE | 2016-10-09 03:45 | NUR ---
REASSESSMENT COMPLETED. SEE ASSESSMENT. BREATHING TREATMENT COMPLETED. URINATED INTO URINAL-275ML OF CLEAR, SRINI URINE. PLACED BACK ONTO CPAP MASK VIA NARES. OCCASSIONAL COUGHING NOTED, NO SYNCOPE AT PRESENT. WILL MONITOR.
--- NOTE | 2016-10-09 05:45 | NUR ---
EYES CLOSED. NO ACUTE DISTRESS NOTED. WILL MONITOR.
--- NOTE | 2016-10-09 06:05 | NUR ---
Tayla SHERIFF AT BEDSIDE TO GIVE BREATHING TREATMENT.
--- NOTE | 2016-10-09 06:28 | NUR ---
PO LASIX GIVEN WITH WATER. QUESTIONS REGARDING O2 LEVEL ASKED BY . QUESTIONS ANSWERED. CPAP OFF AT PRESENT. WILL MONITOR.
--- NOTE | 2016-10-09 06:57 | EEG ---
PATIENT:CHAD DU DATE OF SERVICE: 09/28/16 MEDICAL RECORD: [id number] DATE OF : 46 LOCATION:D.CV0 D.CVI ADMISSION DATE: 09/28/16 REFERRING PHYSICIAN: INTERPRETING PHYSICIAN: MADDIE MALONE MD DATE OF SERVICE: 10/05/2016 Referred as an inpatient by Dr. Graham, currently in [facility]. ELECTROENCEPHALOGRAM NUMBER: [id number]. DATE OF EXAMINATION: 10/05/2016 at 4:00 p.m. TECHNICAL DATA: This electroencephalographic recording consisted of approximately 20 minutes of data collection utilizing the international 10/20 system of electrode placement and both referential and non-referential montages. Sixteen channels of electrocerebral recording are accompanied by a 17th channel dedicated to the electrocardiographic rhythm and 2 channels of electromyographic recording. Recording is performed in the awake and drowsy states utilizing activation by photic stimulation. ELECTROENCEPHALOGRAPHIC DATA: The awake state comprises approximately 60% of the recorded electrocerebral activity. Electromyographic artifact is prominent and rapid eye movements are seen. The posterior dominant background consists of a symmetric, semi-arrhythmic, waxing and waning 8-9 Hz alpha activity, which is suppressed by eye opening. The drowsy state comprises the remaining portion of the recorded electrocerebral activity. Electromyographic artifact is diminished and rapid eye movements are not seen. The posterior dominant background is relatively suppressed. No abnormal or focal slowing is identified. No epileptiform discharges are seen. Photic stimulation induces no abnormal change in the recorded electrocerebral activity. INTERPRETATION: Normal (awake and drowsy). This is a normal electroencephalographic recording. TRANSINT:[id number] Voice Confirmation ID: [id number] DOCUMENT ID: [id number] MADDIE MALONE MD at 0657 CC: [id number] DICTATION DATE: 10/06/16 0721 FLEET MAINTENANCE MANAGER: 10/06/16 0828 ADM IN [facility] [address] [place] [address]
--- NOTE | 2016-10-09 09:30 | NUR ---
Nutrition Follow Up: Chart reviewed. Pt is eating 100% meal avg on an AHA diet. Wt loss since admit - likely r/t fluid loss. +BM 10/08/16. I>O. Labs reviewed. Meds noted including Lasix. Pt with excellent po intake. Rec continue current diet. RD following.
--- NOTE | 2016-10-09 11:07 | NUR ---
ORAL CARE DONE WITH PATIENT.
--- NOTE | 2016-10-09 11:52 | NUR ---
Patient Name: CHAD DU Encounter No: [id number] : 1950 Primary Insurance: MEDICARE A & B Anticipated DC Date: Planned Disposition: Home External Planned Provider: : DCP follow-up note: Patient and family in agreement with discharge plan. Order received for a home nebulizer. HOLLY spoke to Erlinda with [employer] who verified that pateint does not have a diagnosis that insurance will cover for nebulizer. Self pay cost with [employer] is $50.00. Pateint agrees that to self pay [facility] Pateint melissa need a prescription for the nebulizer medication at discharge. Case management will follow and assist as needed. Cm faxed facesheet to [facility]. Patient denied further discharge needs and feels home with and nebulizer is a safe discharge. Xiomara Scott Rn, [facility] [phone]
[2016-10-09] MEDS ORDERED: LASIX40 MG PO (15:00)
[2016-10-09] MEDS ORDERED: BENZONATATE200 MG PO (15:01)
[2016-10-09] MEDS ORDERED: ADVAIR 100/501 DISK INH (15:02)
[2016-10-09] MEDS ORDERED: MUCINEX DM ER1 EAC1 PO (15:02)
[2016-10-09] MEDS ORDERED: KLOR-CON M2020 MEQ PO (15:03)
[2016-10-09] MEDS ORDERED: ULTRAM50 MG PO (15:04)
--- NOTE | 2016-10-09 15:30 | NUR ---
DC INSTRUCTIONS REVIEWED PER JORDAN SCHAEFFER. LEFT SUBCLAVIAN CVL DC'D PER JORDAN SCHAEFFER. PT DRESSED WITH ASSISTANCE OF . DC INSTRUCTIONS REVIEWED. NO FURTHER QUESTIONS.
--- NOTE | 2016-10-09 16:08 | NUR ---
PT DC'D HOME WITH .
== END 2016-10-09 16:08 | disposition home or self-care (01) | DRG 234 ==
LOC: D.ER 22:56 → D.M2 09-27 01:18 → OBSVTIME 09-27 01:18 → D.M2 09-27 01:18 → D.CVICU 09-28 14:32 → D.M2 09-28 14:32 → D.CVICU 09-29 13:23
PROVIDERS: Family Medicine; Internal Medicine Cardiovascular Disease; ADMIT Internal Medicine Interventional Cardiology
PROC: B2151ZZ Fluoroscopy of Left Heart using Low Osmolar Contrast (ICD-10-PCS; 2016-09-28)
PROC: 4A023N7 Measurement of Cardiac Sampling and Pressure, Left Heart, Percutaneous Approach (ICD-10-PCS; 2016-09-28)
PROC: B2111ZZ Fluoroscopy of Multiple Coronary Arteries using Low Osmolar Contrast (ICD-10-PCS; principal; 2016-09-28 09:30)
PROC: 02100ZC Bypass Coronary Artery, One Artery from Thoracic Artery, Open Approach (ICD-10-PCS; 2016-09-29)
PROC: 021109W Bypass Coronary Artery, Two Arteries from Aorta with Autologous Venous Tissue, Open Approach (ICD-10-PCS; 2016-09-29)
PROC: 06BP0ZZ Excision of Right Saphenous Vein, Open Approach (ICD-10-PCS; 2016-09-29)
PROC: 5A1221Z Performance of Cardiac Output, Continuous (ICD-10-PCS; 2016-09-29)
DX: I25.110 Atherosclerotic heart disease of native coronary artery with unstable angina pectoris (principal); T82.855A Stenosis of coronary artery stent, initial encounter; J98.11 Atelectasis; D62 Acute posthemorrhagic anemia; Y84.0 Cardiac catheterization as the cause of abnormal reaction of the patient, or of later complication, without mention of misadventure at the time of the procedure; I10 Essential (primary) hypertension; E78.5 Hyperlipidemia, unspecified; G47.00 Insomnia, unspecified; I65.23 Occlusion and stenosis of bilateral carotid arteries; R05 Cough; M19.90 Unspecified osteoarthritis, unspecified site; Z86.73 Personal history of transient ischemic attack (TIA), and cerebral infarction without residual deficits

== ENCOUNTER → 2016-10-30 09:12 | Outpatient (CLI) | payer MEDICARE, BC ==
[2016-09-28 10:32] VITALS: BMI 39.3
[~2016-10-30 09:12] MED LIST changes: +ADVAIR 100/501 DISK INH; +B-12 DOTS500 MCG PO; +BAYER CHEWABLE81 MG PO; +BENZONATATE200 MG PO; +CO Q-10200 MG PO; +FISH OIL 1,0001 CA1 PO; +GLUCOSAMINE & C1 CAP PO; +KLOR-CON M2020 MEQ PO; +LASIX40 MG PO; +MUCINEX DM ER1 EAC1 PO; +NITROSTAT0.4 MG SL; +ULTRAM50 MG PO
[2016-10-30 09:34] LABS: HEMATOCRIT 40.5 % (42.0-54.0); HEMOGLOBIN 12.9 g/dL (13.5-17.5); MCH 30.4 pg (26.0-34.0); MCHC 31.9 g/dL (31.0-37.0); MCV 95.3 fL (80.0-100.0); RBC 4.25 10x6/uL (4.20-6.10); WBC 6.9 10x3/uL (4.8-10.8)
[2016-10-30 09:42] LABS: ANION GAP 10.9 mmol/L (8-16); CALCIUM 9.2 mg/dL (8.5-10.1); CARBON DIOXIDE 26.1 mmol/L (21.0-32.0); CREATININE - SERUM 1.1 mg/dL (0.6-1.3)
== END | disposition home or self-care (01) ==
LOC: D.LAB 10-27 11:15 → D.RAD 10-27 11:15 → D.LAB 09:12
PROVIDERS: Internal Medicine Cardiovascular Disease
DX: D64.9 Anemia, unspecified (principal); J90 Pleural effusion, not elsewhere classified

== ENCOUNTER → 2017-03-15 11:15 | Outpatient (CLI) | payer MEDICARE, BC ==
[2016-09-28 10:32] VITALS: BMI 39.3
== END | disposition home or self-care (01) ==
LOC: D.CT 11:15
DX: G45.9 Transient cerebral ischemic attack, unspecified (principal)